=== PATIENT | male | born 1960 | race Caucasian/White ===

== ENCOUNTER → 2020-12-05 08:05 | Outpatient (BNVA) | payer OTHER, SELFPAY | PROVIDERS: PCP Internal Medicine; Visit Provider Internal Medicine ==

== ENCOUNTER → 2020-12-06 11:07 | Outpatient (REF) | payer OTHER, SELFPAY ==
--- NOTE | 2020-12-06 11:11 | CA_ITS ---
Transthoracic Echocardiogram Patient (Last, First, Middle): Stan Chapman A Gender: Male Date of : 1960 Age: 60 Procedure Date: 12/06/2020 Procedure Type: Transthoracic Echocardiogram Location: OP Height: 180. cm Weight: 63.5 kg BSA: 1.81 m2 Heart Rate: bpm Sales Department Supervisor: VÍCTOR Farley MD: Maximiliano Jiang MD In Store Representative: Nathaniel Liu MD Symptoms: Q21.1 - Atrial septal defect Study Quality: Good ECG Rhythm: Sinus Conclusions: - No evidence of interatrial shunting Findings Atria There is no evidence of interatrial shunt by agitated saline. Prior Study Comparison No prior study available for comparison. Updated in Other Vendor System with Status of Final Nathaniel Liu MD electronically signed on 12/07/2020 5:04:17 PM with status of Final
== END ==
LOC: HO.CARD 11:07
PROVIDERS: Visit Provider Internal Medicine
DX: R55 Syncope and collapse (principal); R00.2 Palpitations; I25.10 Atherosclerotic heart disease of native coronary artery without angina pectoris; Q21.1 Atrial septal defect
CPT/HCPCS: 93005; 93308; 99202

== ENCOUNTER → 2020-12-26 13:53 | Outpatient (REF) | payer OTHER, SELFPAY ==
--- NOTE | 2020-12-26 13:58 | HM_ITS ---
TEST PERFORMED: Cardiac event monitoring. ENROLLMENT PERIOD: 12/26/2020 to 01/25/2021-30 days. FINDINGS: In the above monitoring period, the underlying rhythm was sinus. The ventricular rate ranged from 72 beats per minute to 98 beats per minute. There were no arrhythmias noted during this time. CONCLUSION: Study shows sinus rhythm only without any arrhythmias of concern. MD BRITTANY Alcala/KATE / [id number]
== END ==
LOC: HO.CARD 13:53
PROVIDERS: Visit Provider Internal Medicine
DX: R00.2 Palpitations (principal); R55 Syncope and collapse
CPT/HCPCS: 93270

== ENCOUNTER → 2021-02-01 14:29 | Outpatient (BNVA) | payer OTHER, SELFPAY | PROVIDERS: PCP Physician Assistant; Referring Provider Physician Assistant; Visit Provider Internal Medicine | DX: Z01.810 Encounter for preprocedural cardiovascular examination (principal); R55 Syncope and collapse; R00.2 Palpitations; I25.10 Atherosclerotic heart disease of native coronary artery without angina pectoris | CPT/HCPCS: 99212 ==

== ENCOUNTER 2021-02-21 08:47 | Outpatient (REF) | payer OTHER, SELFPAY ==
[2021-02-21 09:10] LABS: MANUAL DIFF FLAG NO
[2021-02-21 09:14] LABS: Basophils Percent Auto 0.5 % (0-2); Eosinophils Absolute Auto 0.2 X10*3/uL (0.0-0.4); Hematocrit 46.9 % (42-52); Hemoglobin 15.3 g/dl (14.0-18.0); Imm Gran Abs Auto 0.02 X10*3/uL (0.00-0.03); Imm Gran Pct Auto 0.3 % (0.0-0.4); Lymphocytes Absolute Auto 1.9 X10*3/uL (1.2-4.9); Lymphocytes Percent Auto 31.5 % (20-40); Mean Corpuscular HGB Conc 32.6 g/dl (31.0-36.0); Mean Corpuscular Hemoglobin 29.7 pg (27.0-33.0); Mean Corpuscular Volume 91.1 fL (80-98); Monocytes Absolute Auto 0.5 X10*3/uL (0.1-1.2); Monocytes Percent Auto 8.4 % (2-11); Neutrophils Absolute Auto 3.3 X10*3/uL (2.0-8.3); Neutrophils Percent Auto 55.3 % (45-73); Platelet Count 197 X10*3/uL (160-400); Red Blood Count 5.15 X10*6/uL (4.60-5.80); Red Cell Distribution Width 13.9 % (11.0-16.0); White Blood Count 5.9 X10*3/uL (4.8-10.8)
[2021-02-21 09:53] LABS: Alanine Aminotransferase 41 U/L (0-40); Albumin Level 4.7 g/dL (3.5-5.0); Alkaline Phosphatase 78 U/L (39-117); Anion Gap 10 (12-20); Aspartate Amino Transferase 29 U/L (5-37); Blood Urea Nitrogen 21 mg/dL (9-16); Calcium 9.7 mg/dL (8.4-10.2); Carbon Dioxide 32 mmol/L (22-29); Chloride 103 mmol/L (96-108); Cholesterol 183 mg/dL; Estimated Glomerular Filt Rate > 60; Glucose Fasting 91 mg/dL (60-99); HDL Cholesterol 77 mg/dL; LDL Cholesterol Calculated 92 mg/dl; Potassium 4.9 mmol/L (3.3-5.1); Sodium 140 mmol/L (135-145); Total Protein 7.2 g/dL (6.5-8.0); Triglycerides 71 mg/dL
== END 2021-02-21 08:48 | disposition home or self-care (01) ==
LOC: HO.LAB 08:47
PROVIDERS: PCP Physician Assistant; Visit Provider Internal Medicine
DX: Z00.00 Encounter for general adult medical examination without abnormal findings (principal); E11.9 Type 2 diabetes mellitus without complications
CPT/HCPCS: 36415; 80053; 80061; 85025

== ENCOUNTER → 2022-03-18 14:57 | Outpatient (BNVA) | payer OTHER, SELFPAY | PROVIDERS: PCP Physician Assistant; Referring Provider Physician Assistant; Visit Provider Internal Medicine | DX: I25.10 Atherosclerotic heart disease of native coronary artery without angina pectoris (principal); R55 Syncope and collapse; R00.2 Palpitations | CPT/HCPCS: 93005; 99212 ==

== ENCOUNTER 2022-11-02 07:59 | Outpatient (REF) | payer OTHER, SELFPAY ==
[2022-11-02 11:55] LABS: Hematocrit 48.5 % (42.0-52.0); Hemoglobin 15.8 g/dl (14.0-18.0); Mean Corpuscular HGB Conc 32.6 g/dl (31.0-36.0); Mean Corpuscular Hemoglobin 29.2 pg (27.0-33.0); Mean Corpuscular Volume 89.6 fL (80.0-98.0); Mean Platelet Volume 12.2 fL (9.4-12.4); Platelet Count 204 X10*3/uL (160-400); Red Blood Count 5.41 X10*6/uL (4.60-5.80); Red Cell Distribution Width 13.9 % (11.0-16.0); White Blood Count 5.5 X10*3/uL (4.8-10.8)
[2022-11-02 12:34] LABS: Alanine Aminotransferase 27 U/L (0-40); Albumin Level 4.4 g/dL (3.5-5.0); Alkaline Phosphatase 82 U/L (39-117); Anion Gap 13 (12-20); Aspartate Amino Transferase 22 U/L (5-37); Bilirubin Direct 0.3 mg/dL (0.0-0.5); Bilirubin Total 1.1 mg/dL (0.0-1.0); Blood Urea Nitrogen 22 mg/dL (9-16); Calcium 9.3 mg/dL (8.4-10.2); Carbon Dioxide 27 mmol/L (22-29); Chloride 105 mmol/L (96-108); Cholesterol 253 mg/dL; Estimated Glomerular Filt Rate > 60; Glucose Random 88 mg/dL (60-115); HDL Cholesterol 69 mg/dL; LDL Cholesterol Calculated 169 mg/dl; Potassium 4.3 mmol/L (3.3-5.1); Sodium 141 mmol/L (135-145); Total Protein 6.9 g/dL (6.5-8.0); Triglycerides 77 mg/dL
[2022-11-02 12:48] LABS: Thyroid Stimulating Hormone 1.27 uIU/mL (0.32-4.0)
== END 2022-11-02 08:00 | disposition home or self-care (01) ==
LOC: HO.HMGCLDS 07:59
PROVIDERS: PCP Physician Assistant; Visit Provider Internal Medicine
DX: R55 Syncope and collapse (principal)
CPT/HCPCS: 36415; 80048; 80061; 80076; 84443; 85027

== ENCOUNTER 2022-12-04 12:39 | Outpatient (REF) | payer OTHER, SELFPAY ==
--- NOTE | 2022-12-04 | EEG_ITS ---
This is a 16 channel EEG with an EKG lead. The patient is reported awake during the tracing. Background EEG rhythm is 10 hertz 5 to 20 microvolt posteriorly and low amplitude fast anteriorly. Photic stimulation does not produce any significant driving. Hyperventilation is unremarkable. Cardiac lead does not reveal any significant abnormality. No sharp wave spikes or paroxysmal tendency noted. IMPRESSION: Unremarkable EEG. MD LAURA Moreno/KATE / [id number]
== END 2022-12-04 12:40 | disposition home or self-care (01) ==
LOC: HO.NEURO 12:39
PROVIDERS: PCP Physician Assistant; Visit Provider Physician Assistant
DX: R55 Syncope and collapse (principal)
CPT/HCPCS: 95816

== ENCOUNTER 2022-12-17 08:43 | Outpatient (REF) | payer OTHER, SELFPAY ==
--- NOTE | ~2022-12-17 | MR_ITS ---
EXAMINATION: MR BRAIN WITHOUT CONTRAST CLINICAL INFORMATION: Unexplained acute syncope COMPARISON: None TECHNIQUE: Multiplanar multisequence MR imaging of the brain was obtained without intravenous contrast. FINDINGS: There is no acute infarct on diffusion-weighted imaging. There is no intracranial hemorrhage on iron-sensitive imaging. No extra-axial collection or mass effect/herniation. There are several scattered foci of nonspecific supratentorial white matter T2/FLAIR signal abnormality. No hydrocephalus. The ventricles are normal in morphology and size. The major flow voids at the skull base are preserved. The midline structures are normal. The cerebellar tonsils are normally positioned. The craniocervical junction is normal. Marrow signal is within normal limits. The visualized soft tissues are without significant abnormality. Mild ethmoid and maxillary sinus mucosal thickening. MR/MR head/brain wo con IMPRESSION: Unremarkable noncontrast MRI of the brain.
== END 2022-12-17 08:44 | disposition home or self-care (01) ==
LOC: HO.MRI 08:43
PROVIDERS: PCP Physician Assistant; Visit Provider Physician Assistant
DX: R55 Syncope and collapse (principal)
CPT/HCPCS: 70551

== ENCOUNTER 2023-02-13 14:06 | Outpatient (AMB) | payer OTHER, SELFPAY ==
[2023-02-13 14:13] VITALS: BP 102/62; PULSE 71; O2SAT 94; BMI 22.8
--- NOTE | 2023-02-13 14:13 | A.OFFPC_ITS ---
Vital Signs 02/13/23 14:13 Height 5 ft 8 in Weight 150 lb BMI 22.8 BP 102/62 Blood Pressure Location Lt brachial Position Sitting Pulse 71 Pulse Source Pulse Oximeter Pulse Oximetry (%) 94 Oxygen Delivery Method Room Air Intake Visit Reasons: PE -HLD/ Syncope Allergies No Known Allergies [No Known Allergies*] Allergy (Verified 02/13/23 14:27) Medication List - Last Reconciled 02/13/23 by Ace Barriga PA-C atorvastatin 20 mg PO DAILY 90 days Tobacco use date assessed: 11/13/22 Dental Screening Dental Screen Date: 02/13/23 Did you have a dental visit in the last 12 months?: No Did you have a dental problem in the last 6 months where you did not have access to dental care?: No Was dental information given to patient?: Patient has dentist HPI PE -HLD/ Syncope HPI Details Patient is 62-year-old male here today for routine annual physical. Patient has a past medical history significant for hyperlipidemia,, head and neck tremor, history syncopal episodes. Syncopal episodes: Unclear etiology at this time liquid related to dehydration. EEG was taken due to fears of seizure disorder though EEG completely normal. Also remains with a head and neck tremor and does not bother him. He does report having somewhat of a tremor is upper extremities that causes his sometimes difficulties with writing. He will discuss the symptoms with neurologist at upcoming appointment March 04 . Hyperlipidemia: Most recent lipid panel showing elevated total cholesterol and has restarted on statin therapy. Vaccines: Up-to-date with COVID vaccine and tetanus vaccine. Considering shingles vaccine Colon cancer screening: Willing to get colonoscopy FOR[facility], [facility] Medical History Atherosclerotic cardiovascular disease Surgical History History of rotator cuff surgery Family History (Updated 02/13/23 @ 14:37 by Ace Barriga PA-C) Mother Heart disease Father Heart disease CAD (coronary artery disease) Parkinson disease Social History Housing: House Alcohol intake: current Alcohol intake frequency: 0-2 drinks per day Alcohol type: beer Patient Tobacco Use Status: Never used Tobacco e-Cigarette/Vaping Use: Never Used Second Hand Smoke Exposure: No service: No Current occupational status: employed Cognitive needs: No Hearing needs: No Vision needs: Yes (glasses) Questionnaire PHQ-9 Over the last 2 weeks, how often have you been bothered by any of the following problems? 1. Little interest or pleasure in doing things: not at all 2. Feeling down, depressed, or hopeless: not at all 3. Trouble falling or staying asleep, or sleeping too much: not at all 4. Feeling tired or having little energy: not at all 5. Poor appetite or overeating: not at all 6. Feeling bad about yourself - or that you are a failure or have let yourself or your family down: not at all 7. Trouble concentrating on things, such as reading the newspaper or watching television: not at all 8. Moving or speaking so slowly that other people could have noticed. Or the opposite - being so fidgety or restless that you have been moving around a lot more than usual: not at all 9. Thoughts that you would be better off or of hurting yourself in some way: not at all Total score: 0 Depression Screening Interpretation: Negative Source: Developed by Drs. Álvaro Gonzalez, Jeanine Schmidt, Yohan Jolly and colleagues, with an educational matthieu from [employer]. Thrive Questionnaire Date Thrive assessed: 11/13/22 AUDIT C Alcohol Use Questionnaire (AUDIT-C) 1. How often do you have a drink containing alcohol?: 2-3 times a week 2. How many drinks containing alcohol do you have on a typical day when you are drinking?: 1 or 2 Total Score: 3 KISHA-7 AMB Questionnaire KISHA-7 Date KISHA - 7 assessed: 11/13/22 Source: Developed by Drs. Álvaro Gonzalez, Yohan Babin and colleagues, with an educational matthieu from [employer]. Review of Systems Const Denies body aches, Denies chills, Denies excessive sweating, Denies fatigue, Denies fever(s) and Denies headache(s) Eyes Denies blurry vision ENT Denies dysphagia, Denies vertigo, Denies dizziness, Denies headache(s), Denies hearing loss and Denies tinnitus Card Denies chest pain, Denies chest pain with activity, Denies syncope, Denies irregular heart rhythm and Denies dyspnea Resp Denies chest congestion, Denies cough, Denies hemoptysis, Denies dyspnea and Denies wheezing GI Denies abdominal pain, Denies melena, Denies hematochezia, Denies coffee ground emesis, Denies dysphagia, Denies diarrhea, Denies nausea and Denies vomiting Denies difficulty urinating, Denies dysuria, Denies urinary frequency, Denies urinary hesitancy and Denies urinary urgency Musc Denies arthralgias, Denies limited range of motion, Denies muscle cramps and Denies muscle weakness Skin/Breast Denies rash and Denies skin ulcer Neuro Denies Abnormal speech present, Denies confusion, Denies vertigo, Denies dizziness, Denies syncope, Denies headache(s), Denies memory loss and Denies seizure-like activity Psych Denies anxiety, Denies confusion, Denies depression, Denies memory loss, Denies panic attacks and Denies paranoia Endo Denies excessive sweating, Denies fatigue, Denies flushing, Denies polydipsia and Denies polyuria Aller/Immun Denies wheezing Physical exam (Primary Care) Vital Signs: Last Vital Signs Pulse 71 02/13/23 14:13 BP 102/62 02/13/23 14:13 Pulse Ox 94 02/13/23 14:13 Oxygen Delivery Method Room Air 02/13/23 14:13 BMI result Body Mass Index 22.8 Tobacco/Smoking Status: Tobacco use Status Tobacco use date assessed 11/13/22 02/13/23 14:19 Patient Tobacco Use Status Never used Tobacco 02/13/23 14:19 e-Cigarette/Vaping Use Never Used 02/13/23 14:19 PHQ-9: PHQ-9 Score PHQ-9: Total score 0 02/13/23 14:19 Depression Screening Interpretation: Negative Thrive Assessment: Date of Thrive Assessment Date Thrive assessed 11/13/22 02/13/23 14:19 Const General: cooperative, comfortable, no acute distress, alert and awake; No conf usion Orientation/consciousness: oriented to person, oriented to place, patient oriented x3 and No confusion HENMT Head: Yes normocephalic Ears: external ears normal and TM's normal bilaterally Face and sinus: No sinus tenderness Mouth: Normal oral and palatal mucosa present and tongue normal Teeth and gingiva: dentition normal and gingiva normal Throat: Yes posterior oropharynx normal, Yes tonsils normal and Yes uvula midline Eyes Conjunctivae: conjunctivae normal Sclerae: sclerae normal Pupils: Equal, round and reactive pupils present EOM: EOMs intact bilaterally Direct Ophthalmoscopy: No no photophobia Neck Neck: Yes no lymphadenopathy, No tender and Yes no JVD Thyroid: Thyroid normal Carotids: no bruits Chest Chest palpation & inspection: no tenderness Resp Effort & Inspection: normal respiratory effort, no audible wheezes, not labored and no stridor Auscultation: no crackles, no rales, no rhonchi and no wheezes Cardio Jugular venous distension: no JVD Rate: regular rate, not bradycardic and not tachycardic Rhythm: regular rhythm Bruits: no carotid bruits Peripheral pulses: Peripheral pulses 2+ throughout GI Inspection: Yes normal to inspection, No abdominal wall ecchymosis and No visible herniation Palpation (GI): Soft to palpation, nontender, no guarding, not rigid and No hepatosplenomegaly present Auscultation: normoactive bowel sounds General: Yes no CVA tenderness Back/Spine/Pelvis Back: no CVA tenderness and No back tenderness Cervical Spine: cervical ROM normal Thoracic/Lumbar Spine: thoracic and lumbar spine normal to inspection, straight leg raise negative bilaterally, No thoraco-lumbar ROM limited and No lumbar spinal tenderness Skin Lesions: no lesions Rashes: no rashes Wounds: no wounds Neuro Other: NOTED TREMOR IN THE HEAD General: oriented to person, oriented to place, patient oriented x3, CN's II-XI intact bilaterally and No confusion Cranial nerves: Yes Equal, round and reactive pupils present and Yes Normal accommodation reflex present Cognition (Neuro): normal cognition Speech: No Abnormal speech present Gait exam (Neuro): Normal gait present Motor exam (neuro): 5/5 motor strength present throughout Extrem Right upper extremity: full ROM; no cyanosis Left upper extremity: full ROM; no cyanosis Right lower extremity: no edema Left lower extremity: no edema Psych Appearance: grossly normal Mental Status: mental status grossly normal Affect: normal affect Attitude: cooperative Thought process: Normal thought process present Assessment and Plan Assessment & Plan (1) Annual physical exam: Code(s): Z00.00 - Encounter for general adult medical examination without abnormal findings (2) HLD (hyperlipidemia): Code(s): E78.5 - Hyperlipidemia, unspecified Qualifiers: Hyperlipidemia type: mixed hyperlipidemia Qualified Code(s): E78.2 - Mixed hyperlipidemia Plan: Patient continues on moderate dose statin therapy due to family history and hyperlipidemia. Will recheck lipid panel to assure appropriate total cholesterol and LDL. (3) Benign head tremor: Code(s): G25.0 - Essential tremor Plan: Has upcoming appointment with Neurology. He is somewhat concerned about Parkinson's as his dad had Parkinson's. He continues to have venous central tremor in his upper extremities and head and neck. He does report sometimes having difficulty with writing due to his tremor. Not interested in starting medication at this time for tremor per (4) Colon cancer screening: Code(s): Z12.11 - Encounter for screening for malignant neoplasm of colon Orders: Orders Comprehensive [place]. Panel Fast Today E78.2 - Mixed hyperlipidemia Lipid Panel Today E78.2 - Mixed hyperlipidemia Complete Blood Count no Diff Today E78.2 - Mixed hyperlipidemia Referrals Gastroenterology Referral Z12.11 - Encounter for screening for malignant neoplasm of colon Coding Level of Care Code Est Pt Prev Care 40-64y([id number]) Diagnoses Annual physical exam Z00.00 HLD (hyperlipidemia) E78.2 Hyperlipidemia type: mixed hyperlipidemia Benign head tremor G25.0 Colon cancer screening Z12.11
== END 2023-02-13 14:50 | disposition home or self-care (01) ==
PROVIDERS: PCP Physician Assistant; Visit Provider Physician Assistant
DX: Z00.00 Encounter for general adult medical examination without abnormal findings (principal); E78.2 Mixed hyperlipidemia; G25.0 Essential tremor; Z12.11 Encounter for screening for malignant neoplasm of colon
CPT/HCPCS: 99396

== ENCOUNTER 2023-02-21 07:40 | Outpatient (REF) | payer OTHER, SELFPAY ==
[2023-02-21 11:45] LABS: Hematocrit 49.7 % (42.0-52.0); Hemoglobin 15.9 g/dl (14.0-18.0); Mean Corpuscular Hemoglobin 29.3 pg (27.0-33.0); Mean Corpuscular Volume 91.5 fL (80.0-98.0); Platelet Count 197 X10*3/uL (160-400); Red Blood Count 5.43 X10*6/uL (4.60-5.80); White Blood Count 5.6 X10*3/uL (4.8-10.8)
[2023-02-21 15:30] LABS: Alanine Aminotransferase 36 U/L (0-40); Albumin Level 4.5 g/dL (3.5-5.0); Alkaline Phosphatase 84 U/L (39-117); Anion Gap 15 (12-20); Aspartate Amino Transferase 26 U/L (5-37); Bilirubin Total 0.8 mg/dL (0.0-1.0); Blood Urea Nitrogen 24 mg/dL (9-16); Calcium 9.5 mg/dL (8.4-10.2); Carbon Dioxide 25 mmol/L (22-29); Chloride 106 mmol/L (96-108); Cholesterol 182 mg/dL; Estimated Glomerular Filt Rate > 60; Glucose Fasting 87 mg/dL (60-99); HDL Cholesterol 77 mg/dL; LDL Cholesterol Calculated 94 mg/dl; Potassium 5.3 mmol/L (3.3-5.1); Sodium 141 mmol/L (135-145); Total Protein 7.3 g/dL (6.5-8.0); Triglycerides 55 mg/dL
== END 2023-02-21 07:41 | disposition home or self-care (01) ==
LOC: HO.HMGCLDS 07:40
PROVIDERS: PCP Physician Assistant; Visit Provider Physician Assistant
DX: E78.2 Mixed hyperlipidemia (principal)
CPT/HCPCS: 36415; 80053; 80061; 85027

== ENCOUNTER 2023-03-04 07:57 | Outpatient (AMB) | payer OTHER, SELFPAY ==
[2023-03-04 08:00] VITALS: BP 130/84; PULSE 72; O2SAT 97; BMI 23.2
--- NOTE | 2023-03-04 08:00 | MHC.OFFVIS ---
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 Pt states A couple years ago it happened. My heartbeat was 200 bpm. I was told the heart looked good. It happened againg twice in one week in October. I got up, got dizzy and fell to the ground. A couple days later I was driving and it happened. They thought it was brain seizures. both times were in October almost 2 years to the day. I was told I have benign tremors of the head and I also notice that when I'm writing, at times I have tremors on my left hand. Contracting Executive Required: No Allergies No Known Allergies [No Known Allergies*] Allergy (Verified 03/04/23 08:10) Medication List - Last Reconciled 03/04/23 by IRINA Hinton atorvastatin 20 mg PO DAILY 90 days HPI HPI Comments History of Present Illness Details Left-handed 62-yr-old male presents for neurological evaluation of: syncope and ? of Parkinson's. Pt had 4 episodes of syncope. His 1st/2nd episode was 2 yrs ago in October (about 1 week apart). The last 2 episodes were in October 2022 (3 days apart). 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 The 2nd episode- stepped up on a stool and next thing he knew he was on the ground. The 3rd episode, reports that these occurred after standing up quickly and started walking but became dizzy and fell/passed out. The 4th episode, he was driving, came to a stop, and then passed out x's possibly 60 sec. Each of these episodes occurred later in the day after being physically active and busy and having not eaten or drank much besides coffee. He denies having bit his tongue or urinary incontinence with any of these episodes. He denies any postictal confusion, fatigue. Generally felt better after eating and drinking. He notes that he typically drinks about 2-3 cups in the morning. He had cardiac work-up in after the initial syncopal episodes- work-up was unremarkable. He is on a statin for HLD. Recent brain MRI and EEG- were unremarkable. He is also concerned about possible Parkinson's. His father also had Parkinson's (dx'd in his 60s)- did have a h/o excess alcohol use. Denies any other family h/o tremor. He has had a head tremor x's 15 years. States his former PCP dx'd it as benign head tremor. Lately, he is noticing left hand tremor- having difficulty writing. Tremor does not seem to affect him at work. He does not know if alcohol suppresses the tremor. Patient endorses: some newer onset RLE numbness when driving, occasional nocturnal leg cramps. And patient denies: hyposmia, droooling, dysphagia, usual lightheadedness (other than the the syncopal episodes), constipation, parasomnias, memory changes, gait changes, neck pain/tightness. Denies hx of neuroleptic use/psych hospitalization, concussions, neck/back/shoulder injuries. [facility] Medical History Atherosclerotic cardiovascular disease Surgical History History of rotator cuff surgery Family History (Updated 03/04/23 @ 08:24 by Cheri Hawkins CMA) Mother Heart disease Lung cancer Breast cancer Father Heart disease CAD (coronary artery disease) Parkinson disease Hypertension Hypercholesteremia Hemochromatosis Sudden cardiac arrest Myocardial infarction Benign prostatic hyperplasia CKD (chronic kidney disease) Sister Breast cancer Social History (Updated 03/04/23 @ 08:12 by Cheri Hawkins CMA) Housing: House Alcohol intake: current Alcohol intake frequency: a few times a week Alcohol type: beer Patient Tobacco Use Status: Never used Tobacco e-Cigarette/Vaping Use: Never Used Second Hand Smoke Exposure: No service: No Current occupational status: employed Cognitive needs: No Hearing needs: No Vision needs: Yes (glasses) Review of Systems Const Details: See scanned ROS form Physical Exam Vital Signs: Last Vital Signs Pulse 72 03/04/23 08:00 BP 130/84 03/04/23 08:00 Pulse Ox 97 03/04/23 08:00 Oxygen Delivery Method Room Air 08/15/23 08:00 BMI result Body Mass Index 23.2 Const General: cooperative and no acute distress Orientation/consciousness: patient oriented x3 HEENT Head: Yes normocephalic Resp Effort & Inspection: normal respiratory effort and able to speak in complete sentences Back/Spine/Pelvis Other: Bilateral posterior cervical supple Cervical ROM: full Left Spurling: normal Right Spurling: normal. Neuro Other: Mild intermittent head tremor. No cervical tightness noted. mild LUE tremor in wingbeat position. No appreciable tone. FFM and Foot taps- intact. Stands easily- slight decrease in left arm swing, good stride, steady gait. Writing sample- mild tremor w/o micrographia, but legible writing. Archimede's spiral- BUE tremor but legible. General: patient oriented x3, CN's II-XI intact bilaterally (w/ exception of left lower facial asymmetry- droop) and deep tendon reflexes 2+ bilaterally Motor exam (neuro): 5/5 motor strength present throughout Psych Appearance: grossly normal Mental Status: mental status grossly normal Speech and movement: Normal speech and movement present Affect: normal affect Attitude: cooperative Thought process: Normal thought process present Thought content: Normal thought content present Insight: Good insight present (Psych) Assessment & Plan Assessment & Plan (1) Syncope and collapse: Code(s): R55 - Syncope and collapse (2) Tremor: Comment: LUE wingbeat tremor. Head tremor. BUE action tremor- raul on writing/drawing. Gait w/ decreased left arm swing. Code(s): R25.1 - Tremor, unspecified Plan For syncope: Reviewed brain MRI and EEG- unremarkable. Pt advised to ensure that eh is eating and drinking throughout the day- may take snacks and electrolyte drinks. Pt advised to undergo tilt-table test. For tremor and ? of PD: Pt has very mild asymmetric L > R tremor and decreased LUE arm swing w/ walking and episodes of syncope, which could be very early signs of a PD process, however he denies many other early s/s of PD/movement disorders. Recent brain MRI- unremarkable. Tilt-table as above. Future considerations: DaTscan. Pt seen in c/w Dr Gallardo. f/u in 3 months or sooner prn. Orders: Orders ECG Tilt Table Test Today I25.10 - Atherosclerotic heart disease of [place] coronary artery without angina pectoris, R00.2 - Palpitations, R25.1 - Tremor, unspecified, R55 - Syncope and collapse Coding Level of Care Code New Pt Level 4 ([id number]) Diagnoses Syncope and collapse R55 Tremor R25.1
== END 2023-03-04 09:31 | disposition home or self-care (01) ==
PROVIDERS: Visit Provider Nurse Practitioner Family
DX: R55 Syncope and collapse (principal); R25.1 Tremor, unspecified
CPT/HCPCS: 99204

== ENCOUNTER → 2023-03-04 07:57 | Outpatient (BNVA) | payer OTHER, SELFPAY | PROVIDERS: Visit Provider Nurse Practitioner Family | DX: R55 Syncope and collapse (principal); R25.1 Tremor, unspecified; I25.10 Atherosclerotic heart disease of native coronary artery without angina pectoris | CPT/HCPCS: 99202 ==

== ENCOUNTER 2023-05-26 08:44 | Outpatient (AMB) | payer OTHER, SELFPAY ==
--- NOTE | 2023-05-26 08:51 | MHC.OFFVIS ---
Intake Vital Signs 05/26/23 08:54 Height 5 ft 8 in Weight 150 lb BMI 22.8 BP 142/82 H Blood Pressure Location Lt brachial Position Sitting Pulse 68 Intake Visit Reasons: Colonoscopy screening Intake Note: Patient new consult for 2nd pre colonoscopy screening. Patient denies any GI issues. 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 Required: No Accompanied by: Self / Same As Patient Allergies No Known Allergies [No Known Allergies*] Allergy (Verified 05/26/23 08:50) Medication List - Last Reconciled 05/26/23 by Angella Almanzar PA-C atorvastatin 20 mg PO DAILY 90 days HPI HPI Comments History of Present Illness Details 62-year-old male referred for screening colonoscopy He has no GI complaints- He says he had issues back a couple years ago-he is now doing well- being tested for parkinsons-dx - benign tremors- Appetite is good Bowels are normal No N/V/D/ abdominal pain- BURNS, dizziness, CP, SOB-no fever or chills PFSH Medical History Atherosclerotic cardiovascular disease Surgical History History of rotator cuff surgery Family History Mother Heart disease Lung cancer Breast cancer Father Heart disease CAD (coronary artery disease) Parkinson disease Hypertension Hypercholesteremia Hemochromatosis Sudden cardiac arrest Myocardial infarction Benign prostatic hyperplasia CKD (chronic kidney disease) Sister Breast cancer Social History (Updated 05/26/23 @ 09:08 by Angella Almanzar PA-C) Household Members Other:: single- 2 adult kids Housing: House Alcohol intake: current Alcohol intake frequency: a few times a week Alcohol type: beer Patient Tobacco Use Status: Never used Tobacco e-Cigarette/Vaping Use: Never Used Second Hand Smoke Exposure: No service: No Current occupational status: employed Cognitive needs: No Hearing needs: No Vision needs: Yes (glasses) Review of Systems Const All systems reviewed & are unremarkable except as noted in HPI and below Denies chills, Denies fatigue, Denies fever(s), Denies headache(s) and Denies weakness Eyes Denies blurry vision and Denies loss of vision ENT Denies dizziness and Denies headache(s) Card Denies chest pain, Denies syncope and Denies dyspnea Resp Denies dyspnea GI Denies abdominal pain, Denies change in stool character, Denies heartburn, Denies nausea and Denies vomiting Neuro Denies dizziness, Denies syncope, Denies headache(s), Denies loss of vision, Denies seizure-like activity, Reports tremor(s) and Denies weakness Psych Denies anxiety and Denies depression Endo Denies fatigue Physical Exam Vital Signs: Last Vital Signs Pulse 68 05/26/23 08:54 BP 142/82 H 05/26/23 08:54 BMI result Body Mass Index 22.8 Const General: cooperative, healthy appearing, comfortable and no acute distress Orientation/consciousness: patient oriented x3 Limitations: no limitations Eyes Sclerae: sclerae normal Resp Effort & Inspection: normal respiratory effort and able to speak in complete sentences Auscultation: clear to auscultation bilaterally, no rales, no rhonchi and no wheezes Cardio Rate: regular rate Rhythm: regular rhythm Heart sounds: S1 normal heart sound present and S2 normal heart sound present GI Palpation (GI): Soft to palpation and nontender Percussion: Yes normal to percussion Skin General skin exam: no rashes or lesions noted Neuro General: patient oriented x3 Extrem General: Yes full ROM Psych Appearance: grossly normal Mental Status: mental status grossly normal Speech and movement: Normal speech and movement present and Clear speech present Affect: normal affect Attitude: cooperative Thought content: Normal thought content present Insight: Good insight present (Psych) Judgement: Good judgement present (Psych) Assessment & Plan Assessment & Plan (1) Colon cancer screening: Comment: colonoscopy Discussed, procedure, rare risks, need for escort- Code(s): Z12.11 - Encounter for screening for malignant neoplasm of colon Plan Screening colonoscopy MG prep Orders: Orders Colonoscopy - GI Use Only Today Z12.11 - Encounter for screening for malignant neoplasm of colon Medications: New polyethylene glycol 3350 (Miralax) Take as directed by mouth the day before your procedure. 238 grams PO ONCE PRN 238 grams 0RF laxative effect 1 day bisacodyl (Dulcolax (bisacodyl)) Day before procedure, prep day Take 4 tablets by mouth upon awakening followed by large glass of water 20 mg (4 x 5 mg) PO ONCE 4 tabs 0RF colonoscopy prep 1 day Z12.11 - Encounter for screening for malignant neoplasm of colon Patient Instructions: Very pleasant Gent, referred for Screening colonoscopy MG prep Call with questions or concerns Coding Level of Care Code New Pt Level 3 (71293) Diagnoses Colon cancer screening Z12.11 Time Spent (min) 25
[2023-05-26 08:54] VITALS: BP 142/82; PULSE 68; BMI 22.8
== END 2023-05-26 11:17 | disposition home or self-care (01) ==
PROVIDERS: PCP Physician Assistant; Visit Provider Physician Assistant
DX: Z12.11 Encounter for screening for malignant neoplasm of colon (principal); Z01.818 Encounter for other preprocedural examination
CPT/HCPCS: 99203

== ENCOUNTER → 2023-05-26 08:44 | Outpatient (BNVA) | payer OTHER, SELFPAY | PROVIDERS: PCP Physician Assistant; Visit Provider Physician Assistant | DX: Z01.818 Encounter for other preprocedural examination (principal) | CPT/HCPCS: 99202 ==

== ENCOUNTER 2023-09-03 10:52 | Outpatient (AMB) | payer OTHER, SELFPAY ==
--- NOTE | 2023-09-03 11:13 | A.OFFVIS_ITS ---
Intake Vital Signs 09/03/23 11:14 Height 5 ft 8 in Weight 156 lb BMI 23.7 Pulse 72 Pulse Source Pulse Oximeter Pulse Oximetry (%) 98 Oxygen Delivery Method Room Air Intake Visit Reasons: 3m follow up-CONF Intake Note: Patient presents for 3 month follow up. About three weeks ago I was driving and felt dizzy had to stop. my head shakes are getting worst. Allergies No Known Allergies [No Known Allergies*] Allergy (Verified 09/04/23 14:32) HPI HPI Comments History of Present Illness Details 63-yr-old male presents for f/u visit. Pt denies any significant interval medical history changes. Tilt table test was normal, although pt's BP was elevated throughout the exam. He did have an episode of dizziness (feeling like he would pass out) a couple of weeks ago, while he was driving home from work, he was able to test puller, drank some water, and felt better immediately. He notes that he skipped lunch. 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 Now trying to add [employer] electrolyte replacement. Breakfast: usually a coffee around 6, 7:30, and 10am , if he does eat, its around 7:30am- feels like when he eats breakfast (a sausage egg & cheese sandwich), he becomes hungry quicker. 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 Lunch: at 12pm, usually a 16oz bowl of soup or maybe chicken wings- goes to [employer]. May snack on triscuits. Dinner: is usually around 6-7pm- pasta, meats, potatoes, bread. Evening snack- around 8-8:30pm- milk w/ a row of oreo cookies, ice cream. His head tremor is stable. The left hand tremor comes and goes. Pt denies: hyposmia, droooling, dysphagia, usual lightheadedness (other than the the syncopal episodes), constipation, parasomnias, memory changes, gait changes, falls, neck pain/tightness, headaches. [facility] Medical History Atherosclerotic cardiovascular disease Surgical History History of rotator cuff surgery Family History Mother Heart disease Lung cancer Breast cancer Father Heart disease CAD (coronary artery disease) Parkinson disease Hypertension Hypercholesteremia Hemochromatosis Sudden cardiac arrest Myocardial infarction Benign prostatic hyperplasia CKD (chronic kidney disease) Sister Breast cancer Social History Household Members Other:: single- 2 adult kids Housing: House Alcohol intake: current Alcohol intake frequency: a few times a week Alcohol type: beer Patient Tobacco Use Status: Never used Tobacco e-Cigarette/Vaping Use: Never Used Second Hand Smoke Exposure: No Advance Directives: No service: No Current occupational status: employed Cognitive needs: No Hearing needs: No Vision needs: Yes (glasses) Review of Systems Const All systems reviewed & are unremarkable except as noted in HPI and below Physical Exam Vital Signs: Last Vital Signs Pulse 72 09/03/23 11:14 Pulse Ox 98 09/03/23 11:14 Oxygen Delivery Method Room Air 09/03/23 11:14 BMI result Body Mass Index 23.7 Const General: cooperative and no acute distress Resp Effort & Inspection: normal respiratory effort and able to speak in complete sentences Neuro Other: Genral: A&O x's 3 Expression: intact Mild intermittent head tremor. No cervical tightness noted. Mild LUE tremor in wing beat position. No appreciable tone. FFM and Foot taps- intact. Stands easily- slight decrease in left arm swing, good stride, steady gait Psych Appearance: grossly normal Mental Status: mental status grossly normal Speech and movement: Clear speech present Affect: normal affect Attitude: cooperative Results Reviewed Results Reviewed: 03/26/23, [facility], Tilt Table Test: INDICATION: ?Syncope ? OPERATORS: ?Lesli Darnell NP, Omar Menchaca RN & Tati Hamm ? DESCRIPTION OF PROCEDURE: ?The pt presented to the cardiac stress lab in a fasting state. ?Identity of the pt was confirmed. ?The procedure was explained to the pt. ?The pt states he feels well this AM. ? PREPROCEDURAL VITAL SIGNS IN THE SUPINE POSITION: ?B/P: ?147/91 mmHg ? ? HR: ?60 bpm B/P in the sitting position: ?138/76 mmHg ?HR: ?74 bpm ? PROCEDURAL VITAL SIGNS AT 70 DEGREE TILT 2 min: ?B/P: ?137/93 ?mmHg ?HR: ?63 bpm 4 min: ? 137/92 ? 71 6 min: ? 134/87 ? 68 8 min: ? 138/93 ? 68 10 min: ? 128/90 ? 75 12 min: ? 133/93 ? 70 14 min: ? 139/87 ? 73 16 min: ? 126/99 ? 76 ? c/o right hand tingling 18 min: ? 143/95 ? 70 20 min: ? 149/101 ? 69 22 min: ? 124/92 ? 72 24 min: ? 128/94 ? 73 26 min: ? 143/94 ? 70 28 min: ? 126/95 ? 73 30 min: ? 134/94 ? 73 TEST ENDED PT RETURNED TO SUPINE POSITION ? POST PROCEDURAL VITAL SIGNS 0913: Supine: ?B/P: ?158/102 mmHg ?HR: ?61 bpm ?Pt states he feels well. ? Sitting: ?162/101 ? 68 ? IMRESSION: ?NORMAL. ?However, pt was hypertensive throughout the test. ? Assessment & Plan Assessment & Plan (1) Tremor: Comment: LUE wingbeat tremor. Head tremor. BUE action tremor- raul on writing/drawing. Gait w/ decreased left arm swing. Code(s): R25.1 - Tremor, unspecified (2) Syncope and collapse: Code(s): R55 - Syncope and collapse Plan For syncope: Brain MRI and EEG- unremarkable. Tilt-table- no evidence of orthostatic hypotension. Pt advised to increase the quantity, frequency, and quality of his meals and fluid intake. Encouraged to add higher protein snacks and continue electrolyte drinks. For tremor and ? of PD: Pt has very mild asymmetric L > R tremor and decreased LUE arm swing w/ walking and episodes of syncope, which could be very early signs of a PD process, however he denies many other early s/s of PD/movement disorders. Recent brain MRI- unremarkable. Tilt-table- normal. Will monitor clinically for now. Continue regular physical activity. Future considerations: DaTscan. ? f/u in 6 months or sooner prn. Coding Level of Care Code Est Pt Level 4 (49376) Diagnoses Tremor R25.1 Syncope and collapse R55
[2023-09-03 11:14] VITALS: PULSE 72; O2SAT 98; BMI 23.7
== END 2023-09-03 12:04 | disposition home or self-care (01) ==
PROVIDERS: PCP Physician Assistant; Visit Provider Nurse Practitioner Family
DX: R25.1 Tremor, unspecified (principal); R55 Syncope and collapse
CPT/HCPCS: 99214

== ENCOUNTER → 2023-09-03 10:52 | Outpatient (BNVA) | payer OTHER, SELFPAY | PROVIDERS: PCP Physician Assistant; Visit Provider Nurse Practitioner Family | DX: R25.1 Tremor, unspecified (principal); R55 Syncope and collapse | CPT/HCPCS: 99212 ==

== ENCOUNTER 2023-09-04 14:22 | Emergency (ER) | payer OTHER, SELFPAY ==
--- NOTE | ~2023-09-04 | US_ITS ---
EXAMINATION: US VENOUS ULTRASOUND WITH DOPPLER LOWER EXTREMITY, LEFT CLINICAL INFORMATION: Left lower extremity pain and swelling. COMPARISON: None available. TECHNIQUE: Ultrasound of the deep veins is performed from the hip to the calf with compression sonography and color and pulse Doppler assessment. Spectral analysis with color-flow imaging is performed. FINDINGS: There is normal venous compression and respiratory variation and augmented flow. The visualized common femoral vein, superficial femoral vein, profunda femoral vein, popliteal vein, and the trifurcation region shows no evidence of deep venous thrombosis. There is no significant popliteal fossa cyst. If the patient's symptoms persist, followup ultrasound in 5 days 7 days might be of value to exclude proximal propagation from a non-visualized calf vein. US/US venous duplex LE LT IMPRESSION: No DVT demonstrated in the left lower extremity.
--- NOTE | ~2023-09-04 | XR_ITS ---
EXAMINATION: XR KNEE, LEFT CLINICAL INFORMATION: History of fall, swelling COMPARISON: 03/12/2020 TECHNIQUE: Four views of the left knee. FINDINGS: Bones have normal alignment. No fracture, subluxation or overt joint effusion. There appears to be chronic minimal narrowing at the medial aspect of the medial tibiofemoral compartment with negligible marginal osteophyte formation. Soft tissues are swollen in the prepatellar/infrapatellar region. Similar abnormality was seen on 03/12/2020. XR/XR knee LT 3V IMPRESSION: * No acute osseous injury at the left knee. * Soft tissues are swollen in the prepatellar/infrapatellar region.Given history of fall, this could represent posttraumatic edema/contusion and/or prepatellar bursitis.
--- NOTE | 2023-09-04 14:31 | ED.GENADULT ---
HPI - General Adult General Chief complaint: Wound/Laceration Stated complaint: Pain/swelling left leg Time Seen by Provider: 09/04/23 22:53 Source: patient and old records reviewed Mode of arrival: ambulatory Limitations: no limitations History of Present Illness HPI narrative: 63 yo male with PMH of CAD, HLD, prior cellulitis here with c/o 3 days of L leg pain/swelling/erythema after playing with grandkids. It started with scrape on knee cap and has now spread and caused swelling and redness. No fevers, n/v/d. MD complaint: rash Onset (ago): day(s) (3) Location: left and lower extremity Radiation: non-radiation Severity: mild Quality: aching Pain Consistency: constant Relieving factors: rest Exacerbating factors: movement Associated symptoms: rash Treatments prior to arrival: none Related Data Previous Rx's Medication Instructions Recorded atorvastatin 20 mg tablet 20 mg PO DAILY 90 days #90 tabs 05/18/23 bisacodyl 5 mg tablet,delayed 20 mg (4 x 5 mg) PO ONCE 05/26/23 release (Dulcolax (bisacodyl)) colonoscopy prep 1 day #4 tabs polyethylene glycol 3350 17 238 g PO ONCE PRN laxative effect 05/26/23 gram/dose oral powder (Miralax) 1 day #238 grams cephalexin 500 mg capsule 500 mg PO QID 7 days #28 caps 09/05/23 doxycycline hyclate 100 mg capsule 100 mg PO BID 7 days #14 caps 09/05/23 Allergies Allergy/AdvReac Type Severity Reaction Status Date / Time No Known Allergies Allergy Verified 09/04/23 14:32 [No Known Allergies*] Review of Systems Review of Systems: Constitutional : No Fever, No Chills ENT/Mouth : No sore throat, No Rhinorrhea Eyes: No Eye Pain, No Swelling, No Redness Cardiovascular : No Chest Pain, No SOB Respiratory : No Cough, No Sputum Gastrointestinal : No Nausea, No Vomiting, No Diarrhea, No abdominal Pain Genitourinary : No Dysuria, No Hematuria Musculoskeletal : No joint pain, No Myalgias, No Joint Swelling Skin : No Skin Lesions, positive skin rash Neuro : No Weakness, No Numbness, No Headache Psych : No Anxiety, No Depression Heme/Lymph: No Bruising, No Bleeding,No Lymphadenopathy Endocrine : No Polyuria, No Polydipsia All other systems reviewed and are negative [facility] Past Medical History Attestation statement: The following information was validated with the patient. Source: old records reviewed Medical History Atherosclerotic cardiovascular disease Surgical History History of rotator cuff surgery Family History Family History Mother Heart disease Lung cancer Breast cancer Father Heart disease CAD (coronary artery disease) Parkinson disease Hypertension Hypercholesteremia Hemochromatosis Sudden cardiac arrest Myocardial infarction Benign prostatic hyperplasia CKD (chronic kidney disease) Sister Breast cancer Social History Social History Household Members Other:: single- 2 adult kids Housing: House Alcohol intake: current Alcohol intake frequency: a few times a week Alcohol type: beer Patient Tobacco Use Status: Never used Tobacco e-Cigarette/Vaping Use: Never Used Second Hand Smoke Exposure: No Advance Directives: No service: No Current occupational status: employed Cognitive needs: No Hearing needs: No Vision needs: Yes (glasses) Physical Exam ED Vital Signs: Vital Signs - 24 hr 09/04/23 14:32 09/04/23 23:47 Temperature 98 F 98.1 F Pulse Rate 90 74 Respiratory Rate 18 16 Blood Pressure 132/92 H 170/86 H Pulse Oximetry 98 97 Oxygen Delivery Method Room Air Room Air BMI result Body Mass Index 22.1 Appearance: Alert. Oriented X3. No acute distress. Eyes: Pupils equal, round and reactive to light. ENT: Pharynx normal. Neck: Normal inspection. Neck supple. CVS: Normal heart rate and rhythm. Pulses normal. Respiratory: No respiratory distress. Breath sounds normal. Abdomen: Soft and nontender. Skin: Skin warm and dry. Normal skin color. Normal skin turgor. Extremities: L knee scab noted on patella there is a pink lacy rash noted across dorsum of the patella and anterior magana - prepatella bursa is boggy and mildly swollen, knee can be ranged doubt septic joint no erythema on the thigh distal NV inact Neuro: Oriented X 3. No motor deficit. No sensory deficit. Course Course Course Narrative: This is a rapid medical exam: Additional HPI, ROS, PE not included below will be deferred to primary provider. Patient is a 63-year-old male presenting to the ED with complaint of left knee pain since a trip and fall over the weekend. States he fell onto a rock, noticed a small tear in his jeans. Has a small laceration, reports increased pain and swelling. Small puncture wound noted to anterior knee, erythema to knee, lower leg, swelling. Plan: T-dap, x-ray, labs Medications Administered Discontinued Medications Generic Name Dose Route Start Last Admin Trade Name Freq PRN Reason Stop Dose Admin Piperacillin Sod/Tazobactam 50 mls @ 100 mls/hr 09/04/23 22:57 09/05/23 00:08 Sod 3.375 gm/ Sodium Chloride IV 09/04/23 23:26 100 mls/hr ONCE ONE Administration Medical Decision Making Medical Decision Making [facility] Narrative: 63 yo male with PMH of CAD, HLD, prior cellulitis here with c/o L leg cellulitis and likely prepatella bursitis the calf is also swollen - he is distal NV intact and compartments are soft and compressible will obtain labs, cultures, DVT study start on zosyn and reassess he is not toxic may be able to start on outpatient oral antibiotics pending US. Differential Diagnosis Differential Diagnoses: The differential diagnosis associated with the presentation includes cellulitis, DVT, bursitis Admission/Observation Consideration of admission/observation: Escalation of care including admission/observation considered not toxic improved redness and swelling can be managed as outpatient initially Lab Data [facility] Lab Attestation statement: I reviewed the patient's lab results. 09/04/23 14:41 09/04/23 14:41 Labs: Lab Results 09/04/23 09/04/23 Range/Units 14:41 23:29 WBC 10.8 (4.8-10.8) X10*3/uL RBC 4.91 (4.60-5.80) X10*6/uL Hgb 14.4 (14.0-18.0) g/dl Hct 43.3 (42.0-52.0) % MCV 88.2 (80.0-98.0) fL MCH 29.3 (27.0-33.0) pg MCHC 33.3 (31.0-36.0) g/dl RDW 14.0 (11.0-16.0) % Plt Count 210 (160-400) X10*3/uL MPV 10.9 (9.4-12.4) fL Immature Gran % (Auto) 0.3 (0.0-0.4) % Neut % (Auto) 66.4 (45-73) % Lymph % (Auto) 23.8 (20-40) % Bonner % (Auto) 8.5 (2-11) % Eos % (Auto) 0.6 (0-4) % Baso % (Auto) 0.4 (0-2) % Lymph # (Auto) 2.6 (1.2-4.9) X10*3/uL Bonner # (Auto) 0.9 (0.1-1.2) X10*3/uL Eos # (Auto) 0.1 (0.0-0.4) X10*3/uL Baso # (Auto) 0.0 (0.0-0.2) X10*3/uL Abs Immat Gran (auto) 0.03 (0.00-0.03) X10*3/uL Absolute Neuts (auto) 7.2 (2.0-8.3) x10*3/uL Absolute Nucleated RBC 0.000 (0.0-0.012) X10*3/uL Nucleated RBC % (auto) 0.0 (0.0-0.2) /100WBC ESR 16 H (0-15) MM/HR Sodium 142 (135-145) mmol/L Potassium 4.0 (3.3-5.1) mmol/L Chloride 105 (96-108) mmol/L Carbon Dioxide 29 (22-29) mmol/L Anion Gap 12 (12-20) BUN 19 H (9-16) mg/dL Creatinine 0.99 (0.5-1.4) mg/dL Estim Creat Clear Calc 74.4 Estimated GFR > 60 Random Glucose 90 (60-115) mg/dL Lactic Acid 0.8 (0.5-2.0) mmol/L Calcium 9.3 (8.4-10.2) mg/dL Total Bilirubin 0.6 (0.0-1.0) mg/dL AST 20 (5-37) U/L ALT 30 (0-40) U/L Alkaline Phosphatase 77 (39-117) U/L C-Reactive Protein 4.49 H (< or = 0.50) mg/dL Total Protein 6.9 (6.5-8.0) g/dL Albumin 3.9 (3.5-5.0) g/dL Independent Interpretation I performed an independent interpretation of an: Plain X-Ray (no fracture) and Ultrasound (no DVT) Radiology Impression Discussion of test interpretation with radiology: I have reviewed the radiologist's reading. External Record Review External record reviewed: Outpatient record Prescription Management I considered prescription management with: Antibiotic Discharge Plan Discharge Clinical Impression: Cellulitis Qualifiers: Site of cellulitis: extremity Site of cellulitis of extremity: lower extremity Laterality: left Qualified Code(s): L03.116 - Cellulitis of left lower limb Bursitis Qualifiers: Bursitis location: knee Knee bursitis location: prepatellar bursitis Laterality: left Qualified Code(s): M70.42 - Prepatellar bursitis, left knee Patient Disposition: Home, Self-Care Instructions: Cellulitis (ED), Knee Bursitis (ED) Additional Instructions: return for worsening redness, swelling, fevers or any other concerns. monitor for worsening signs very closely On a cephalosporin?antibiotic, softer bowel movements are to be expected. Call your provider if you move your bowels more than 4 times a day, your bowel movements are almost all liquid, or you get a rash.?? On doxycycline, do not take pills immediately before going to bed and swallow pills with plenty of water. Avoid direct sunlight, iron, antacids, and Pepto Bismol. Call your provider if you develop new ringing in your ears, new problems hearing, dizziness, difficulty swallowing, rash, abdominal discomfort, nausea, or diarrhea.? Prescriptions: New doxycycline hyclate 100 mg capsule 100 mg PO BID 7 Days Qty: 14 0RF cephalexin 500 mg capsule 500 mg PO QID 7 Days Qty: 28 0RF No Action atorvastatin 20 mg tablet 20 mg PO DAILY 90 Days Qty: 90 1RF bisacodyl [Dulcolax (bisacodyl)] 5 mg tablet,delayed release (DR/EC) 20 mg PO ONCE 1 Days Qty: 4 0RF Rx Instructions: Day before procedure, prep day Take 4 tablets by mouth upon awakening followed by large glass of water polyethylene glycol 3350 [Miralax] 17 gram/dose powder 238 g PO ONCE PRN (Reason: laxative effect) 1 Days Qty: 238 0RF Rx Instructions: Take as directed by mouth the day before your procedure.
[2023-09-04 14:32] VITALS: BP 132/92; PULSE 90; RESP 18; TEMP 36.6; O2SAT 98; BMI 22.1
[2023-09-04 14:49] LABS: MANUAL DIFF FLAG NO
[2023-09-04 14:51] LABS: Basophils Percent Auto 0.4 % (0-2); Eosinophils Absolute Auto 0.1 X10*3/uL (0.0-0.4); Eosinophils Percent Auto 0.6 % (0-4); Hematocrit 43.3 % (42.0-52.0); Hemoglobin 14.4 g/dl (14.0-18.0); Imm Gran Abs Auto 0.03 X10*3/uL (0.00-0.03); Imm Gran Pct Auto 0.3 % (0.0-0.4); Lymphocytes Absolute Auto 2.6 X10*3/uL (1.2-4.9); Lymphocytes Percent Auto 23.8 % (20-40); Mean Corpuscular HGB Conc 33.3 g/dl (31.0-36.0); Mean Corpuscular Hemoglobin 29.3 pg (27.0-33.0); Mean Corpuscular Volume 88.2 fL (80.0-98.0); Mean Platelet Volume 10.9 fL (9.4-12.4); Monocytes Absolute Auto 0.9 X10*3/uL (0.1-1.2); Monocytes Percent Auto 8.5 % (2-11); Neutrophils Absolute Auto 7.2 x10*3/uL (2.0-8.3); Neutrophils Percent Auto 66.4 % (45-73); Platelet Count 210 X10*3/uL (160-400); Red Blood Count 4.91 X10*6/uL (4.60-5.80); White Blood Count 10.8 X10*3/uL (4.8-10.8)
[2023-09-04 15:09] LABS: Alanine Aminotransferase 30 U/L (0-40); Albumin Level 3.9 g/dL (3.5-5.0); Alkaline Phosphatase 77 U/L (39-117); Anion Gap 12 (12-20); Aspartate Amino Transferase 20 U/L (5-37); Bilirubin Total 0.6 mg/dL (0.0-1.0); Blood Urea Nitrogen 19 mg/dL (9-16); C Reactive Protein 4.49 mg/dL (< or = 0.50); Calcium 9.3 mg/dL (8.4-10.2); Carbon Dioxide 29 mmol/L (22-29); Chloride 105 mmol/L (96-108); Creatinine Clr Calc Pharmacy 74.4; Estimated Glomerular Filt Rate > 60; Glucose Random 90 mg/dL (60-115); Sodium 142 mmol/L (135-145); Total Protein 6.9 g/dL (6.5-8.0)
[2023-09-04 15:28] LABS: Erythrocyte Sedimentation Rate 16 MM/HR (0-15)
[2023-09-04 23:44] LABS: Lactic Acid 0.8 mmol/L (0.5-2.0)
[2023-09-04 23:47] VITALS: BP 170/86; PULSE 74; RESP 16; TEMP 36.7; O2SAT 97
--- NOTE | 2023-09-04 23:55 | MHC.EDTECH ---
THIS PCT ASSUMED CARE OF PATIENT AT 2300 ,VITALS TAKEN AND 2ND SETS OF BLOOD CULTURE DRAWN AND SENT TO LAB .
[2023-09-05] MEDS: Piperacillin Sodium/Tazobactam 3.375 GM in 0.9 % Sodium Chloride 50 ML IV (00:08)
--- NOTE | 2023-09-05 00:12 | PC.NURSE ---
Abx started late due to waiting on 2nd set of cultures. Pt medicated per sep. Plan of care ongoing.
[2023-09-05 00:52] VITALS: BP 127/72; PULSE 66; RESP 16; TEMP 36.2; O2SAT 97
[2023-09-05] MEDS: Doxycycline Monohydrate 100 MG CAPSULE PO (01:19)
--- NOTE | 2023-09-05 01:20 | PC.NURSE ---
Pt medicated per sep. Plan of care ongoing.
== END 2023-09-05 01:30 | disposition home or self-care (01) ==
PROVIDERS: Registered Nurse Emergency; Emergency Provider Emergency Medicine; PCP Physician Assistant
DX: L03.116 Cellulitis of left lower limb (principal); M79.605 Pain in left leg; M70.42 Prepatellar bursitis, left knee
CPT/HCPCS: 36415; 73562; 80053; 83605; 85025; 85652; 86140; 87040; 93971; 96365; 99284; J2543

== ENCOUNTER 2023-11-04 08:54 | Day surgery (SDC) | payer OTHER, SELFPAY ==
[2023-10-30 12:23] VITALS: BMI 23.7
[2023-11-04 09:28] VITALS: BP 152/85; PULSE 69; RESP 16; TEMP 37; O2SAT 98; BMI 22.6
--- NOTE | 2023-11-04 09:54 | P.CONAN_ITS ---
[facility] Active Problems Active Problems: All Active Problems Tremor (Acute) Colon cancer screening (Acute) Annual physical exam (Acute) HLD (hyperlipidemia) (Acute) Family history of Parkinson disease (Acute) Benign head tremor (Acute) Right shoulder strain (Acute) Preoperative cardiovascular examination (Acute) Palpitations (Acute) Syncope and collapse (Acute) Intermittent palpitations (Acute) Cervical radiculopathy (Acute) Atherosclerotic cardiovascular disease (Acute) Past Medical History Medical History (Updated 09/06/23 @ 00:01 by Christopher Ricardo) Atherosclerotic cardiovascular disease Family History Family History Mother Heart disease Lung cancer Breast cancer Father Heart disease CAD (coronary artery disease) Parkinson disease Hypertension Hypercholesteremia Hemochromatosis Sudden cardiac arrest Myocardial infarction Benign prostatic hyperplasia CKD (chronic kidney disease) Sister Breast cancer Family history of problems with anesthesia: No Surgical History Surgical History (Updated 11/04/23 @ 09:26 by Heidi Peralta) H/O colonoscopy History of rotator cuff surgery History of Problems with Anesthesia: No Social History Social History Household Members Other:: single- 2 adult kids Housing: House Alcohol intake: current Alcohol intake frequency: a few times a month Alcohol type: beer Patient Tobacco Use Status: Never used Tobacco e-Cigarette/Vaping Use: Never Used Second Hand Smoke Exposure: No Use of substances other than those prescribed or required for medical reasons: No Are you DNR?: No Advance Directives: No Advance Directives Information Provided: Yes service: No Current occupational status: employed Cognitive needs: No Hearing needs: No Vision needs: Yes (glasses) Meds Allergies Allergy/AdvReac Type Severity Reaction Status Date / Time No Known Allergies Allergy Verified 11/04/23 09:16 [No Known Allergies*] Exam Height,Weight and Vital Signs: Height 5 ft 8 in Weight 67.54 kg Last Vital Signs Temp 98.6 F 11/04/23 09:28 Pulse 69 11/04/23 09:28 Resp 16 11/04/23 09:28 BP 152/85 H 11/04/23 09:28 Pulse Ox 98 11/04/23 09:28 O2 Del Method Room Air 11/04/23 09:28 Airway Mallampati Class: II TM Dist: >3cm Neck ROM: Full Loose/Missing/Broken Teeth: Upper Assessment and Plan Assessment Anesthesia Assessment: Anesthesia Plan Discussed and Chart Reviewed Final Anesthetic Review Family History of Problems with Anesthesia: No History of Problems with Anesthesia: No NPO: Yes ASA Class: II Final Preanesthetic Review: No Changes in Pt Med Stat, Meds/Allgs Chart Reviewed, Consent Obtained/Reviewed and Anes Risks/Benef Reviewed Patient Risk: Intermediate Procedure Risk: Low Anesthetic Plan Anesthetic Plan: TIVA Disposition: Standard PACU
[2023-11-04] MEDS: Lactated Ringers 1,000 ML 80 ML IVCONT (10:00)
--- NOTE | 2023-11-04 10:12 | P.HPSUR_ITS ---
Pre-Procedural Eval Section A - 24 Hr Update-Section A only Date of Service: 11/04/23 Section B - Complete if H&P > 30 days Chief Complaint: Encounter for screening for malignant neoplasm of Relevant Family History (Specify if Yes): No Relevant Social History: None Present Medications: see Short Stay Collaborative assessment Medical History: Significant History (Atherosclerotic cardiovascular disease) History of Previous Operations: Relevant previous surgery/procedure and date(s) ( H/O colonoscopy History of rotator cuff surgery) Allergies: Allergies Allergy/AdvReac Type Severity Reaction Status Date / Time No Known Allergies Allergy Verified 11/04/23 09:16 [No Known Allergies*] Review of Systems Sugical H&P ROS: Negative: Constitution, Cardiovascular, Respiratory, Neurological, Psychiatric, Hem-Onc, Allergic/Immunologic, Gastrointestinal, G enitourinary, Musculoskeletal, Integumentary, Endocrine and Eyes/Ears/Nose/Throat Exam Surgical H&P Exam: Normal: HEENT, Normal: Heart, Normal: Lungs, Normal: Extremities, Normal: Abdomen, Normal: Skin and Normal: Neurological Plan Diagnosis/Plan: Unchanged I have reviewed the history and physical and performed a pertinent physical examination on my patient. No changes have occurred unless specified. Time Spent With Patient Time: Total time managing care of this patient today ____ minutes.
--- NOTE | 2023-11-04 10:13 | W.PM.OPN ---
Operative Note Operative Note Date of Service: 11/04/23 Narrative: Operative Information Procedure Description: Colonoscopy Indication: screening Anesthesia: MAC COLONOSCOPY Instrument: Olympus variable stiffness pediatric scope 190L Colonoscopy Monitoring: Vital signs and clinical assessment, continuous EKG monitoring, Pulse oximetry, Carbon Dioxide monitoring and blood pressure monitoring were done throughout the procedure. Colon withdrawal time was 9 minutes. Procedure: The patient was placed in the left lateral decubitis position and pre-procedure medications were administered. After a digital rectal examination of the ano-rectum, the video colonoscope was inserted into the rectum and advanced through the colon to the cecum/TI. The colonoscope was slowly withdrawn in a retrograde panoramic fashion and the colon mucosa was carefully examined including a retroflexed view of the rectum. Findings and interventions are described below. Procedure Difficulty: easy Findings: Terminal Ileum-normal Cecum:normal Ascending Colon: 10 mm sessile polyp removed with cold snare, several diverticula seen Transverse Colon -normal Descending Colon:normal Sigmoid Colon: severe diverticulosis Rectum: Retroflexion with small internal hemorrhoids seen, grade I Anorectum - normal Intervention: cold snare Colon preparation: [place] Bowel Preparation Scale Right colon; 2 Transverse colon: 2 Left colon; 2 (0 = Unprepared colon segment with mucosa not seen due to solid stool that cannot be cleared. 1 = Portion of mucosa of the colon segment seen, but other areas of the colon segment not well seen due to staining, residual stool and/or opaque liquid. 2 = Minor amount of residual staining, small fragments of stool and/or opaque liquid, but mucosa of colon segment seen well. 3 = Entire mucosa of colon segment seen well with no residual staining, small fragments of stool or opaque liquid) Impression and Post Procedure Diagnosis: diverticulosis colon polyp internal hemorrhoids Plan: High fiber diet leaflet Avoid straining at stool, epsom salts and sitz bath, anusol supps or cream Repeat Colonoscopy in 5 years due to adenomatous appearing polyp or earlier if clinically indicated Above findings were reviewed with the patient and relevant handouts were provided if indicated.
[2023-11-04 10:52] VITALS: BP 118/73; PULSE 72; RESP 16; TEMP 36.6; O2SAT 99
[2023-11-04 11:07] VITALS: BP 129/83; PULSE 60; RESP 16; TEMP 36.7; O2SAT 99
== END 2023-11-04 11:42 | disposition home or self-care (01) ==
PROVIDERS: PCP Physician Assistant; Visit Provider Internal Medicine Gastroenterology
PROC: 0DJD8ZZ Inspection of Lower Intestinal Tract, Via Natural or Artificial Opening Endoscopic (ICD-10-PCS; CPT 45378; principal; 2023-11-04 11:40)
DX: Z12.11 Encounter for screening for malignant neoplasm of colon (principal); D12.2 Benign neoplasm of ascending colon; K57.30 Diverticulosis of large intestine without perforation or abscess without bleeding; K64.0 First degree hemorrhoids
CPT/HCPCS: 45385; 88305

== ENCOUNTER → 2023-11-04 08:54 | Outpatient (BNV) | payer OTHER, SELFPAY | PROVIDERS: PCP Physician Assistant; Visit Provider Internal Medicine Gastroenterology | DX: Z12.11 Encounter for screening for malignant neoplasm of colon (principal); D12.2 Benign neoplasm of ascending colon; K57.30 Diverticulosis of large intestine without perforation or abscess without bleeding; K64.0 First degree hemorrhoids | CPT/HCPCS: 45385 ==

== ENCOUNTER 2024-02-23 14:17 | Outpatient (AMB) | payer OTHER, SELFPAY ==
[2024-02-23 14:26] VITALS: BP 120/72; PULSE 70; O2SAT 97; BMI 23.0
--- NOTE | 2024-02-23 14:26 | MHC.PC.OV ---
Vital Signs 02/23/24 14:26 Height 5 ft 8 in Weight 151 lb 4 oz BMI 23.0 BP 120/72 Blood Pressure Location Lt brachial Position Sitting Pulse 70 Pulse Source Pulse Oximeter Pulse Oximetry (%) 97 Oxygen Delivery Method Room Air Intake Visit Reasons: PE Intake Note: Patient is here today for a physical. 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 Accompanied by: Self / Same As Patient Allergies No Known Allergies [No Known Allergies*] Allergy (Verified 02/23/24 14:31) Medication List - Last Reconciled 02/23/24 by Ace Barriga PA-C atorvastatin 20 mg PO DAILY 90 days Tobacco use date assessed: 02/23/24 Dental Screening Dental Screen Date: 02/23/24 Did you have a dental visit in the last 12 months?: Yes Did you have a dental problem in the last 6 months where you did not have access to dental care?: No Was dental information given to patient?: Patient has dentist HPI PE HPI Details Patient is 63-year-old male here today for routine annual physical. Patient has a past medical history significant for hyperlipidemia,, head and neck tremor, Concern--> reports his right bunion has been very painful. Has not been able to wear his work boots due to the pain. Has been wearing soft wide shoes without much issue. 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 Tremor: Also remains with a head and neck tremor. He does report having somewhat of a tremor is upper extremities that causes his sometimes difficulties with writing. Does report family history of parkinsonian syndrome. He will discuss the symptoms with neurologist at upcoming appointment March 04 . Hyperlipidemia: Has restarted using statin therapy(atorvastatin 20 mg). Most recent lipid panel showing good control of his total cholesterol and LDL. Colorectal cancer screening- colonoscopy done in spring, tubular adenoma Polyp found, repeat in 5 years vaccines: Up-to-date with tetanus and COVID vaccine, considering shingles vaccine Laboratory Tests 11/02/22 02/21/23 08:06 07:45 RBC 5.41 Creatinine 1.05 Cholesterol 253 182 LDL Cholesterol, C alc 169 TSH 1.27 [facility] Medical History Atherosclerotic cardiovascular disease Surgical History H/O colonoscopy History of rotator cuff surgery Family History Mother Heart disease Lung cancer Breast cancer Father Heart disease CAD (coronary artery disease) Parkinson disease Hypertension Hypercholesteremia Hemochromatosis Sudden cardiac arrest Myocardial infarction Benign prostatic hyperplasia CKD (chronic kidney disease) Sister Breast cancer Social History Household Members Other:: single- 2 adult kids Housing: House Alcohol intake: current Alcohol intake frequency: a few times a month Alcohol type: beer Patient Tobacco Use Status: Never used Tobacco e-Cigarette/Vaping Use: Never Used Second Hand Smoke Exposure: No service: No Current occupational status: employed Cognitive needs: No Hearing needs: No Vision needs: Yes (glasses) Questionnaire PHQ-9 Over the last 2 weeks, how often have you been bothered by any of the following problems? 1. Little interest or pleasure in doing things: not at all 2. Feeling down, depressed, or hopeless: not at all 3. Trouble falling or staying asleep, or sleeping too much: not at all 4. Feeling tired or having little energy: not at all 5. Poor appetite or overeating: not at all 6. Feeling bad about yourself - or that you are a failure or have let yourself or your family down: not at all 7. Trouble concentrating on things, such as reading the newspaper or watching television: not at all 8. Moving or speaking so slowly that other people could have noticed. Or the opposite - being so fidgety or restless that you have been moving around a lot more than usual: not at all 9. Thoughts that you would be better off or of hurting yourself in some way: not at all Total score: 0 Depression Screening Interpretation: Negative Depression Screening Done: Yes 95798 - PHQ-9 Billing: Yes Source: Developed by Drs. Álvaro Gonzalez, Jeanine Schmidt, Yohan Jolly and colleagues, with an educational matthieu from [employer]. Thrive Questionnaire Date Thrive assessed: 02/23/24 I am a: Patient What is your living situation today?: I have a steady place to live Within the past 12 months, did the food you bought not last and you didn't have the money to get more?: Never true Within the past 12 months, did you worry whether your food would run out before you got money to buy more?: Never true Do you have trouble paying for medicines?: No Do you have trouble getting transportation to medical appointments?: No Do you have trouble paying your heating and electricity bill?: No Do you have trouble taking care of your child, family member or friend?: No Do you have trouble with day-to-day activities such as bathing, preparing meals, shopping, managing finances, etc.?: No Are you currently unemployed and looking for a job?: No Are you interested in more education?: No Please select the resources that you would like help with: None Currently or been in a relationship where the following occur: No concerns reported THRIVE Score: 0 AUDIT C Alcohol Use Questionnaire (AUDIT-C) 1. How often do you have a drink containing alcohol?: 2-3 times a week 2. How many drinks containing alcohol do you have on a typical day when you are drinking?: 1 or 2 3. How often do you have six or more drinks on one occasion?: Never Total Score: 3 KISHA-7 AMB Questionnaire KISHA-7 Date KISHA - 7 assessed: 02/23/24 Feeling nervous, anxious, or on edge: 0 = Not at all Not being able to stop or control worryin = Not at all Worrying too much about different things: 0 = Not at all Trouble relaxin = Not at all Being so restless that it is hard to sit still: 0 = Not at all Becoming easily annoyed or irritable: 0 = Not at all Feeling afraid as if something awful might happen: 0 = Not at all Total KISHA-7 score (0-4 normal; 5-9 mild; 10-14 moderate; 15-21 severe): 0 Source: Developed by Drs. Álvaro Gonzalez, Jeanine Schmidt, Yohan Jolly and colleagues, with an educational matthieu from [employer]. KISHA-7 Assessment Billing KISHA-7 Assessment Tool: KISHA-7 Assessment 11176 Review of Systems Const Denies body aches, Denies chills, Denies excessive sweating, Denies fatigue, Denies fever(s) and Denies headache(s) Eyes Denies blurry vision ENT Denies dysphagia, Denies vertigo, Denies dizziness, Denies headache(s), Denies hearing loss and Denies tinnitus Card Denies chest pain, Denies chest pain with activity, Denies syncope, Denies irregular heart rhythm and Denies dyspnea Resp Denies chest congestion, Denies cough, Denies hemoptysis, Denies dyspnea and Denies wheezing GI Denies abdominal pain, Denies melena, Denies hematochezia, Denies coffee ground emesis, Denies dysphagia, Denies diarrhea, Denies nausea and Denies vomiting Denies difficulty urinating, Denies dysuria, Denies urinary frequency, Denies urinary hesitancy and Denies urinary urgency Musc Denies arthralgias, Denies limited range of motion, Denies muscle cramps and Denies muscle weakness Skin/Breast Denies rash and Denies skin ulcer Neuro Denies Abnormal speech present, Denies confusion, Denies vertigo, Denies dizziness, Denies syncope, Denies headache(s), Denies memory loss and Denies seizure-like activity Psych Denies anxiety, Denies confusion, Denies depression, Denies memory loss, Denies panic attacks and Denies paranoia Endo Denies excessive sweating, Denies fatigue, Denies flushing, Denies polydipsia and Denies polyuria Aller/Immun Denies wheezing Physical exam (Primary Care) Vital Signs: Last Vital Signs Pulse 70 02/23/24 14:26 BP 120/72 02/23/24 14:26 Pulse Ox 97 02/23/24 14:26 Oxygen Delivery Method Room Air 02/23/24 14:26 BMI result Body Mass Index 23.0 Tobacco/Smoking Status: Tobacco use Status Tobacco use date assessed 02/23/24 02/23/24 14:32 Patient Tobacco Use Status Never used Tobacco 02/23/24 14:37 e-Cigarette/Vaping Use Never Used 02/23/24 14:37 PHQ-9: PHQ-9 Score PHQ-9: Total score 0 02/23/24 14:32 Depression Screening Interpretation: Negative Thrive Assessment: Date of Thrive Assessment Date Thrive assessed 02/23/24 02/23/24 14:29 Currently or been in a relationship where the following occur: No concerns reported Const General: cooperative, comfortable, no acute distress, alert and awake; No confusion Orientation/consciousness: oriented to person, oriented to place, patient oriented x3 and No confusion HENIL Head: Yes normocephalic Ears: external ears normal and TM's normal bilaterally Face and sinus: No sinus tenderness Mouth: Normal oral and palatal mucosa present and tongue normal Teeth and gingiva: dentition normal and gingiva normal Throat: Yes posterior oropharynx normal, Yes tonsils normal and Yes uvula midline Eyes Conjunctivae: conjunctivae normal Sclerae: sclerae normal Pupils: Equal, round and reactive pupils present EOM: EOMs intact bilaterally Direct Ophthalmoscopy: No no photophobia Neck Neck: Yes no lymphadenopathy, No tender and Yes no JVD Thyroid: Thyroid normal Carotids: no bruits Chest Chest palpation & inspection: no tenderness Resp Effort & Inspection: normal respiratory effort, no audible wheezes, not labored and no stridor Auscultation: no crackles, no rales, no rhonchi and no wheezes Cardio Jugular venous distension: no JVD Rate: regular rate, not bradycardic and not tachycardic Rhythm: regular rhythm Bruits: no carotid bruits Peripheral pulses: Peripheral pulses 2+ throughout GI Inspection: Yes normal to inspection, No abdominal wall ecchymosis and No visible herniation Palpation (GI): Soft to palpation, nontender, no guarding, not rigid and No hepatosplenomegaly present Auscultation: normoactive bowel sounds General: Yes no CVA tenderness Back/Spine/Pelvis Back: no CVA tenderness and No back tenderness Cervical Spine: cervical ROM normal Thoracic/Lumbar Spine: thoracic and lumbar spine normal to inspection, straight leg raise negative bilaterally, No thoraco-lumbar ROM limited and No lumbar spinal tenderness Skin Lesions: no lesions Rashes: no rashes Wounds: no wounds Neuro General: oriented to person, oriented to place, patient oriented x3, CN's II-XI intact bilaterally and No confusion Cranial nerves: Yes Equal, round and reactive pupils present and Yes Normal accommodation reflex present Cognition (Neuro): normal cognition Speech: No Abnormal speech present Gait exam (Neuro): Normal gait present Motor exam (neuro): 5/5 motor strength present throughout Extrem Right upper extremity: full ROM; no cyanosis Left upper extremity: full ROM; no cyanosis Right lower extremity: no edema Left lower extremity: no edema Ankle/foot/toe images: 1. REDNESS AND MILD EDEMA, NOTABLE ANGULATION AT THE MTP AND 1ST DIGIT. Psych Appearance: grossly normal Mental Status: mental status grossly normal Affect: normal affect Attitude: cooperative Thought process: Normal thought process present Assessment and Plan Assessment & Plan (1) Annual physical exam: Code(s): Z00.00 - Encounter for general adult medical examination without abnormal findings (2) Bunion, right: Code(s): M21.611 - Bunion of right foot Plan: PER HPI, HAS A NOTABLE BUNION OVER BILATERAL FEET WORSE ON RIGHT SIDE. UNABLE TO WEARS WORK BOOTS DUE TO CONTINUED PAIN. Would like to see Podiatry for possible treatment. (3) HLD (hyperlipidemia): Code(s): E78.5 - Hyperlipidemia, unspecified Qualifiers: Hyperlipidemia type: mixed hyperlipidemia Qualified Code(s): E78.2 - Mixed hyperlipidemia Plan: Patient continues on atorvastatin 20 mg without side effect. Most recent lipid panel showing good control of his total cholesterol and LDL. Goal LDL is to remain below 130. (4) Tremor: Comment: LUE wingbeat tremor. Head tremor. BUE action tremor- raul on writing/drawing. Gait w/ decreased left arm swing. Code(s): R25.1 - Tremor, unspecified Plan: Continues to have a notable head and neck tremor otherwise is able to perform all activities of daily living. Will be following up in Neurology in near future. Orders: Orders Comprehensive [place]. Panel Fast 02/23/24 E78.2 - Mixed hyperlipidemia Complete Blood Count no Diff 02/23/24 E78.2 - Mixed hyperlipidemia Lipid Panel 02/23/24 E78.2 - Mixed hyperlipidemia Prostate Specific Antigen Scr 02/23/24 E78.2 - Mixed hyperlipidemia, Z12.5 - Encounter for screening for malignant neoplasm of prostate Referrals Podiatry Referral M21.611 - Bunion of right foot Patient Instructions: Goal: Goal LDL to be below 130 Barriers: Adherence to physical activity and healthy eating habits Coding Level of Care Code Est Pt Prev Care 40-64y(66803) Diagnoses Annual physical exam Z00.00 Bunion, right M21.611 Mixed hyperlipidemia E78.2 Hyperlipidemia type: mixed hyperlipidemia Tremor R25.1 Additional Codes KISHA-7 Assessment Billing - KISHA-7 Assessment Tool: KISHA-7 Assessment [id number] ([id number])
== END 2024-02-23 14:59 | disposition home or self-care (01) ==
PROVIDERS: PCP Physician Assistant; Visit Provider Physician Assistant
DX: Z00.00 Encounter for general adult medical examination without abnormal findings (principal); M21.611 Bunion of right foot; E78.2 Mixed hyperlipidemia; R25.1 Tremor, unspecified
CPT/HCPCS: 99396

== ENCOUNTER 2024-04-12 07:09 | Outpatient (REF) | payer OTHER, SELFPAY ==
[2024-04-12 10:37] LABS: Hematocrit 44.7 % (42.0-52.0); Hemoglobin 14.7 g/dl (14.0-18.0); Mean Corpuscular HGB Conc 32.9 g/dl (31.0-36.0); Mean Corpuscular Hemoglobin 29.8 pg (27.0-33.0); Mean Corpuscular Volume 90.7 fL (80.0-98.0); Mean Platelet Volume 11.9 fL (9.4-12.4); Platelet Count 192 X10*3/uL (160-400); Red Blood Count 4.93 X10*6/uL (4.60-5.80); Red Cell Distribution Width 13.9 % (11.0-16.0); White Blood Count 4.8 X10*3/uL (4.8-10.8)
[2024-04-12 10:57] LABS: Alanine Aminotransferase 31 U/L (0-40); Albumin Level 4.1 g/dL (3.5-5.0); Alkaline Phosphatase 74 U/L (39-117); Anion Gap 12 (12-20); Aspartate Amino Transferase 23 U/L (5-37); Bilirubin Total 0.7 mg/dL (0.0-1.0); Blood Urea Nitrogen 16 mg/dL (9-16); Calcium 9.2 mg/dL (8.4-10.2); Carbon Dioxide 29 mmol/L (22-29); Chloride 106 mmol/L (96-108); Cholesterol 158 mg/dL (<200); Estimated Glomerular Filt Rate > 60; Glucose Fasting 98 mg/dL (60-99); HDL Cholesterol 67 mg/dL (>40); LDL Cholesterol Calculated 78 mg/dL (<100); Sodium 143 mmol/L (135-145); Total Protein 6.7 g/dL (6.5-8.0); Triglycerides 69 mg/dL (<150)
[2024-04-12 11:27] LABS: Prostate Specific Antigen Scr 2.99 ng/mL (<0.05-4.0)
== END 2024-04-12 07:10 | disposition home or self-care (01) ==
LOC: HO.HMGCLDS 07:09
PROVIDERS: PCP Physician Assistant; Visit Provider Physician Assistant
DX: E78.2 Mixed hyperlipidemia (principal); Z12.5 Encounter for screening for malignant neoplasm of prostate
CPT/HCPCS: 36415; 80053; 80061; 84153; 85027

== ENCOUNTER 2024-06-28 10:40 | Outpatient (AMB) | payer OTHER, SELFPAY ==
[2024-06-28 11:15] VITALS: BP 122/76; PULSE 66; O2SAT 97; BMI 24.5
--- NOTE | 2024-06-28 11:15 | MHC.PC.OV ---
Vital Signs 06/28/24 11:15 Height 5 ft 8 in Weight 161 lb BMI 24.5 BP 122/76 Blood Pressure Location Lt brachial Position Sitting Pulse 66 Pulse Source Pulse Oximeter Pulse Oximetry (%) 97 Oxygen Delivery Method Room Air Intake Visit Reasons: Orthopedic 07/09 Intake Note: Patient is here for a Pre-op for bunionectomy scheduled with Dr. Marrero at [facility] on 07/09/24, . 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 Alberto is due for a bunionectomy being done at [facility] Patient has a past medical history significant for hyperlipidemia,, head and neck tremor, Patient has no history of Congestive heart failure, mi or CVA. He is not on any anticoagulation or antiplatelet therapy. CHRONIC MEDICAL CONDITIONS--> Tremor: Also remains with a head and neck tremor. He does report having somewhat of a tremor is upper extremities that causes his sometimes difficulties with writing. Does report family history of parkinsonian syndrome. He will discuss the symptoms with neurologist at upcoming appointment March 04 . Hyperlipidemia: Has restarted using statin therapy(atorvastatin 20 mg). Most recent lipid panel showing good control of his total cholesterol and LDL. [facility] Medical History Atherosclerotic cardiovascular disease Surgical History H/O colonoscopy History of rotator cuff surgery Family History Mother Heart disease Lung cancer Breast cancer Father Heart disease CAD (coronary artery disease) Parkinson disease Hypertension Hypercholesteremia Hemochromatosis Sudden cardiac arrest Myocardial infarction Benign prostatic hyperplasia CKD (chronic kidney disease) Sister Breast cancer Social History Household Members Other:: single- 2 adult kids Housing: House Alcohol intake: current Alcohol intake frequency: a few times a month Alcohol type: beer Patient Tobacco Use Status: Never used Tobacco e-Cigarette/Vaping Use: Never Used Second Hand Smoke Exposure: No service: No Current occupational status: employed Cognitive needs: No Hearing needs: No Vision needs: Yes (glasses) Questionnaire Thrive Questionnaire Date Thrive assessed: 02/23/24 AUDIT C Alcohol Use Questionnaire (AUDIT-C) 2. How many drinks containing alcohol do you have on a typical day when you are drinking?: 1 or 2 3. How often do you have six or more drinks on one occasion?: Never Total Score: 0 KISHA-7 AMB Questionnaire KISHA-7 Date KISHA - 7 assessed: 02/23/24 Source: Developed by Drs. Álvaro Gonzalez, Jeanine Schmidt, Yohan Jolly and colleagues, with an educational matthieu from [employer]. Review of Systems Const Denies headache(s) Eyes Denies loss of vision ENT Denies vertigo, Denies dizziness, Denies headache(s) and Denies sore throat Card Denies chest pain, Denies leg edema and Denies lightheadedness Resp Denies cough, Denies hemoptysis and Denies wheezing GI Denies abdominal pain, Denies melena, Denies constipation, Denies diarrhea and Denies vomiting Denies dysuria, Denies urinary frequency and Denies urinary urgency Musc Denies arthralgias, Denies joint swelling, Denies numbness and Denies tingling Neuro Denies Abnormal speech present, Denies behavioral changes, Denies vertigo, Denies dizziness, Denies headache(s), Denies loss of vision, Denies memory loss, Denies numbness and Denies tingling Psych Denies anxiety, Denies behavioral changes, Denies depression, Denies memory loss and Denies panic attacks Ashwin/Lymph Denies easy bleeding and Denies easy bruising Aller/Immun Denies wheezing Physical exam (Primary Care) Vital Signs: Last Vital Signs Pulse 66 06/28/24 11:15 BP 122/76 06/28/24 11:15 Pulse Ox 97 06/28/24 11:15 Oxygen Delivery Method Room Air 06/28/24 11:15 BMI result Body Mass Index 24.5 Tobacco/Smoking Status: Tobacco use Status Tobacco use date assessed 02/23/24 06/28/24 11:16 Patient Tobacco Use Status Never used Tobacco 06/28/24 11:16 e-Cigarette/Vaping Use Never Used 06/28/24 11:16 Thrive Assessment: Date of Thrive Assessment Date Thrive assessed 02/23/24 06/28/24 11:16 Const General: healthy appearing, no acute distress, alert and awake Nutritional Appearance: well nourished Orientation/consciousness: oriented to person, oriented to place and oriented to time HENMT Ears: TM's normal bilaterally General nose exam: Normal nasal mucous membranes and turbinates present Eyes Conjunctivae: conjunctivae normal Sclerae: sclerae normal Pupils: Equal, round and reactive pupils present Neck Neck: Yes no lymphadenopathy and Yes no JVD Thyroid: Thyroid normal Carotids: no bruits Resp Effort & Inspection: normal respiratory effort and not tachypneic Auscultation: no crackles, no rales, no rhonchi and no wheezes Cardio Rate: regular rate Rhythm: regular rhythm Heart sounds: no murmurs and normal S1 and S2 GI Palpation (GI): Soft to palpation, nontender, no hepatomegaly and no splenomegaly Auscultation: normal bowel sounds Skin General skin exam: no rashes or lesions noted and dry skin Neuro General: oriented to person, oriented to place and oriented to time Cranial nerves: Yes Equal, round and reactive pupils present Speech: No Abnormal speech present Gait exam (Neuro): Normal gait present Motor exam (neuro): no tremor noted Extrem Right upper extremity: full ROM Left upper extremity: full ROM Right lower extremity: full ROM; no edema Left lower extremity: full ROM; no edema Psych Mental Status: mental status grossly normal Speech and movement: Normal speech and movement present Affect: normal affect Attitude: cooperative Thought process: Normal thought process present Coding Level of Care Code Est Pt Level 3 (16995) Diagnoses Pre-op evaluation Z01.818 Acute cough R05.1 Cough type: acute Bunion, right M21.611 Assessment & Plan Assessment & Plan (1) Pre-op evaluation: Code(s): Z01.818 - Encounter for other preprocedural examination Category: Medical Plan: Patient's recent labs and vitals today's stable. Recent EKG and chest x-ray normal. Patient is medically clear for elective bunionectomy procedure He does mention he would like to fly down to [place] shortly after his surgery to recover in the warm weather state with his daughter. Did explain to him that there is a high-risk for DVT after surgery and he does understand his risk. He will ask a surgeon about flying after his particular surgery as well (2) Cough: Code(s): R05.9 - Cough, unspecified Category: Medical Qualifiers: Cough type: acute Qualified Code(s): R05.1 - Acute cough Plan: Does report having a cough over the last week that is only notable in the morning. No fevers or productivity of the cough. Will send for chest x-ray to out any pneumonia. (3) Bunion, right: Code(s): M21.611 - Bunion of right foot Category: Medical Plan: As above Orders: Orders XR chest 2V 06/28/24 R05.9 - Cough, unspecified Complete Blood Count no Diff 06/28/24 Z01.818 - Encounter for other preprocedural examination Prothrombin Time INR 06/28/24 Z01.818 - Encounter for other preprocedural examination ECG 12 lead EKG 06/28/24 Z01.818 - Encounter for other preprocedural examination Basic Metabolic Panel 06/28/24 Z01.818 - Encounter for other preprocedural examination
== END 2024-06-28 11:51 | disposition home or self-care (01) ==
PROVIDERS: PCP Physician Assistant; Visit Provider Physician Assistant
DX: Z01.818 Encounter for other preprocedural examination (principal); R05.1 Acute cough; M21.611 Bunion of right foot

== ENCOUNTER → 2024-06-28 10:40 | Outpatient (REF) | payer OTHER, SELFPAY ==
--- NOTE | ~2024-06-28 | XR_ITS ---
EXAMINATION: XR CHEST CLINICAL INFORMATION: R05.9 - Cough, unspecified COMPARISON: None available. TECHNIQUE: 2 views of the chest were obtained. FINDINGS: No significant abnormality is noted involving the heart, lungs, mediastinum, bony thorax or soft tissues. XR/XR chest 2V IMPRESSION: Unremarkable examination. Electronically signed by: Kerrie Brown MD 06/28/2024 02:31 PM [facility]
--- NOTE | 2024-06-28 12:00 | ECG_ITS ---
Test Reason : PRE OP Blood Pressure : / mmHG Vent. Rate : 060 BPM Atrial Rate : 060 BPM P-R Int : 190 ms QRS Dur : 078 ms QT Int : 398 ms P-R-T Axes : 070 065 054 degrees QTc Int : 398 ms Normal sinus rhythm Normal ECG No previous ECGs available Referred By: Ace Barriga Electronically Signed By:DC SIDHU MD
[2024-06-28 12:36] LABS: Hematocrit 44.9 % (42.0-52.0); Hemoglobin 14.9 g/dl (14.0-18.0); Mean Corpuscular HGB Conc 33.2 g/dl (31.0-36.0); Mean Corpuscular Hemoglobin 29.6 pg (27.0-33.0); Mean Corpuscular Volume 89.1 fL (80.0-98.0); Mean Platelet Volume 10.9 fL (9.4-12.4); Platelet Count 187 X10*3/uL (160-400); Red Blood Count 5.04 X10*6/uL (4.60-5.80); Red Cell Distribution Width 13.8 % (11.0-16.0); White Blood Count 5.7 X10*3/uL (4.8-10.8)
[2024-06-28 12:40] LABS: INTERNATIONAL NORM RATIO 0.9 (0.9-1.1); Prothrombin Time 10.8 SEC (10.9-12.4)
[2024-06-28 13:10] LABS: Anion Gap 12 (12-20); Blood Urea Nitrogen 17 mg/dL (9-16); Calcium 9.7 mg/dL (8.4-10.2); Carbon Dioxide 30 mmol/L (22-29); Chloride 103 mmol/L (96-108); Estimated Glomerular Filt Rate > 60; Glucose Random 96 mg/dL (60-115); Sodium 140 mmol/L (135-145)
== END ==
LOC: HO.CARD 10:40
PROVIDERS: PCP Physician Assistant; Visit Provider Physician Assistant
DX: Z01.818 Encounter for other preprocedural examination (principal); R05.9 Cough, unspecified; M21.611 Bunion of right foot
CPT/HCPCS: 36415; 71046; 80048; 85027; 85610; 93005; 99212

== ENCOUNTER → 2024-06-28 12:00 | Outpatient (BNV) | payer OTHER, SELFPAY | PROVIDERS: PCP Physician Assistant; Visit Provider Internal Medicine Cardiovascular Disease | DX: Z01.810 Encounter for preprocedural cardiovascular examination (principal) | CPT/HCPCS: 93010 ==

== ENCOUNTER 2024-10-26 10:13 | Outpatient (AMB) | payer OTHER, SELFPAY ==
[2024-10-26 10:14] VITALS: BP 120/76; PULSE 70; TEMP 36.3; O2SAT 93; BMI 23.0
--- NOTE | 2024-10-26 10:14 | MHC.PC.OV ---
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 Accompanied by: Self / Same As Patient Allergies No Known Allergies [No Known Allergies*] Allergy (Verified 10/26/24 10:26) Medication List - Last Reconciled 10/26/24 by Ace Barriga PA-C atorvastatin 20 mg PO DAILY 90 days Tobacco use date assessed: 10/26/24 Dental Screening Dental Screen Date: 10/26/24 Did you have a dental visit in the last 12 months?: No Did you have a dental problem in the last 6 months where you did not have access to dental care?: No Was dental information given to patient?: Patient has dentist HPI (L) elbow pain and swelling HPI Details The patient is a 64-year-old male presenting with elbow swelling and discomfort. He first noticed the swelling in his elbow about a week ago. The patient reports increased awareness of the condition due primarily to others pointing it out. He has since registered a worsening of symptoms, with discomfort noted upon applying pressure or leaning on the affected elbow. [facility] Medical History Atherosclerotic cardiovascular disease Surgical History H/O colonoscopy History of rotator cuff surgery Family History Mother Heart disease Lung cancer Breast cancer Father Heart disease CAD (coronary artery disease) Parkinson disease Hypertension Hypercholesteremia Hemochromatosis Sudden cardiac arrest Myocardial infarction Benign prostatic hyperplasia CKD (chronic kidney disease) Sister Breast cancer Social History Household Members Other:: single- 2 adult kids Housing: House Alcohol intake: current Alcohol intake frequency: a few times a month Alcohol type: beer Patient Tobacco Use Status: Never used Tobacco e-Cigarette/Vaping Use: Never Used Second Hand Smoke Exposure: No service: No Current occupational status: employed Cognitive needs: No Hearing needs: No Vision needs: Yes (glasses) Questionnaire PHQ-9 Over the last 2 weeks, how often have you been bothered by any of the following problems? 1. Little interest or pleasure in doing things: not at all 2. Feeling down, depressed, or hopeless: not at all 3. Trouble falling or staying asleep, or sleeping too much: not at all 4. Feeling tired or having little energy: not at all 5. Poor appetite or overeating: not at all 6. Feeling bad about yourself - or that you are a failure or have let yourself or your family down: not at all 7. Trouble concentrating on things, such as reading the newspaper or watching television: not at all 8. Moving or speaking so slowly that other people could have noticed. Or the opposite - being so fidgety or restless that you have been moving around a lot more than usual: not at all 9. Thoughts that you would be better off or of hurting yourself in some way: not at all Total score: 0 Depression Screening Interpretation: Negative Depression Screening Done: Yes 81798 - PHQ-9 Billing: Yes Source: Developed by Drs. Álvaro Gonzalez, Jeanine Schmidt, Yohan Jolly and colleagues, with an educational matthieu from [employer]. Thrive Questionnaire Date Thrive assessed: 10/26/24 I am a: Patient What is your living situation today?: I have a steady place to live Within the past 12 months, did the food you bought not last and you didn't have the money to get more?: Never true Within the past 12 months, did you worry whether your food would run out before you got money to buy more?: Never true Do you have trouble paying for medicines?: No Do you have trouble getting transportation to medical appointments?: No Do you have trouble paying your heating and electricity bill?: No Do you have trouble taking care of your child, family member or friend?: No Do you have trouble with day-to-day activities such as bathing, preparing meals, shopping, managing finances, etc.?: No Are you currently unemployed and looking for a job?: No Are you interested in more education?: No Please select the resources that you would like help with: None Currently or been in a relationship where the following occur: No concerns reported THRIVE Score: 0 AUDIT C Alcohol Use Questionnaire (AUDIT-C) 1. How often do you have a drink containing alcohol?: Monthly or less 2. How many drinks containing alcohol do you have on a typical day when you are drinking?: 1 or 2 3. How often do you have six or more drinks on one occasion?: Never Total Score: 1 KISHA-7 AMB Questionnaire KISHA-7 Date KISHA - 7 assessed: 10/26/24 Feeling nervous, anxious, or on edge: 0 = Not at all Not being able to stop or control worryin = Not at all Worrying too much about different things: 0 = Not at all Trouble relaxin = Not at all Being so restless that it is hard to sit still: 0 = Not at all Becoming easily annoyed or irritable: 0 = Not at all Feeling afraid as if something awful might happen: 0 = Not at all Total KISHA-7 score (0-4 normal; 5-9 mild; 10-14 moderate; 15-21 severe): 0 Source: Developed by Drs. Álvaro Gonzalez, Jeanine Schmidt, Yohan Jolly and colleagues, with an educational matthieu from [employer]. KISHA-7 Assessment Billing KISHA-7 Assessment Tool: KISHA-7 Assessment 44581 Review of Systems Const Denies headache(s) Eyes Denies loss of vision ENT Denies vertigo, Denies dizziness, Denies headache(s) and Denies sore throat Card Denies chest pain, Denies leg edema and Denies lightheadedness Resp Denies cough, Denies hemoptysis and Denies wheezing GI Denies abdominal pain, Denies melena, Denies constipation, Denies diarrhea and Denies vomiting Denies dysuria, Denies urinary frequency and Denies urinary urgency Musc Denies arthralgias, Denies joint swelling, Denies numbness and Denies tingling Neuro Denies Abnormal speech present, Denies behavioral changes, Denies vertigo, Denies dizziness, Denies headache(s), Denies loss of vision, Denies memory loss, Denies numbness and Denies tingling Psych Denies anxiety, Denies behavioral changes, Denies depression, Denies memory loss and Denies panic attacks Ashwin/Lymph Denies easy bleeding and Denies easy bruising Aller/Immun Denies wheezing Physical exam (Primary Care) Vital Signs: Last Vital Signs Temp 97.3 F 10/26/24 10:14 Pulse 70 10/26/24 10:14 BP 120/76 10/26/24 10:14 Pulse Ox 93 10/26/24 10:14 Oxygen Delivery Method Room Air 10/26/24 10:14 BMI result Body Mass Index 23.0 Tobacco/Smoking Status: Tobacco use Status Tobacco use date assessed 10/26/24 10/26/24 10:27 Patient Tobacco Use Status Never used Tobacco 10/26/24 10:16 e-Cigarette/Vaping Use Never Used 10/26/24 10:16 PHQ-9: PHQ-9 Score PHQ-9: Total score 0 10/26/24 10:27 Depression Screening Interpretation: Negative Thrive Assessment: Date of Thrive Assessment Date Thrive assessed 10/26/24 10/26/24 10:27 Currently or been in a relationship where the following occur: No concerns reported Const General: healthy appearing, no acute distress, alert and awake Nutritional Appearance: well nourished Orientation/consciousness: oriented to person, oriented to place and oriented to time HENMT Ears: TM's normal bilaterally General nose exam: Normal nasal mucous membranes and turbinates present Eyes Conjunctivae: conjunctivae normal Sclerae: sclerae normal Pupils: Equal, round and reactive pupils present Neck Neck: Yes no lymphadenopathy and Yes no JVD Thyroid: Thyroid normal Carotids: no bruits Resp Effort & Inspection: normal respiratory effort and not tachypneic Auscultation: no crackles, no rales, no rhonchi and no wheezes Cardio Rate: regular rate Rhythm: regular rhythm Heart sounds: no murmurs and normal S1 and S2 GI Palpation (GI): Soft to palpation, nontender, no hepatomegaly and no splenomegaly Auscultation: normal bowel sounds Skin General skin exam: no rashes or lesions noted and dry skin Neuro General: oriented to person, oriented to place and oriented to time Cranial nerves: Yes Equal, round and reactive pupils present Speech: No Abnormal speech present Gait exam (Neuro): Normal gait present Motor exam (neuro): no tremor noted Extrem Right upper extremity: full ROM Left upper extremity: full ROM Elbow/forearm/wrist images: 1. OLECRANON BURSA NOTED , NO ERYTHEMA Right lower extremity: full ROM; no edema Left lower extremity: full ROM; no edema Psych Mental Status: mental status grossly normal Speech and movement: Normal speech and movement present Affect: normal affect Attitude: cooperative Thought process: Normal thought process present Coding Level of Care Code Est Pt Level 3 (46624) Diagnoses Olecranon bursitis, left elbow M70.22 Additional Codes KISHA-7 Assessment Billing - KISHA-7 Assessment Tool: KISHA-7 Assessment 74894 ([id number]) PHQ-9 - 39868 - PHQ-9 Billing: Yes ([id number]) Assessment & Plan Assessment & Plan (1) Olecranon bursitis, left elbow: Code(s): M70.22 - Olecranon bursitis, left elbow Category: Medical Plan: Reassurance about natural resolution; advised ice application and possible use of a brace. Avoid draining unless infection suspected; uses topical anti-inflammatories with noted past unpredictability in efficacy. Conservative measures advised to reduce discomfort and promote healing. X-ray considered unnecessary for diagnosis; treatment includes activity modification and management with Voltaren. Orders: Orders Lipid Panel Today E78.2 - Mixed hyperlipidemia Comprehensive [place]. Panel Fast Today E78.2 - Mixed hyperlipidemia Prostate Specific Antigen Scr Today E78.2 - Mixed hyperlipidemia, Z12.5 - Encounter for screening for malignant neoplasm of prostate Complete Blood Count no Diff Today E78.2 - Mixed hyperlipidemia Referrals Neurology Referral R25.1 - Tremor, unspecified
--- OUTSIDE RECORDS SUMMARY | 2024-10-26 12:00 | XMS_ITS | Clinical Summary ---
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 Name Role Phone No, Pcp ARCHAEOLOGIST Primary Care Provider Unavailabl e Social History Tobacco Use Types Packs/Day Years Used Date Smoking Tobacco: Never Assessed Sex and Gender Information Value Date Recorded Sex Assigned at Not on file Legal Sex Male 5:29 PM EDT Gender Identity Not on file Sexual Orientation Not on file Plan of Treatment Health Maintenance Due Date Last Done Comments Colorectal Cancer: COLONOSCO PY Screening every 10 yrs (or Modifier) 1961 Depression: Screening Annual ly using PHQ-2/9 in Adults 18 yrs or above (or HM Modifier)([facility]) 1979 Hepatitis C Virus Infection in Adolescents and Adults: Screening (or Modifier) ([facility]) 1979 SDMT Screening Reminder: Denise foss for all adults ([facility]) 1979 Tobacco Smoking Cessation: i n Adults excluding Women: Behavioral and Pharmacotherapy Interventions ([facility]) 1979 DTaP/Tdap/Td Vaccines ([facility]) (1 - Tdap) 1980 Lipid Screening: Every 5 yrs for Men aged 35+ (or HM Modifier) ([facility]) 1997 Colorectal Cancer Screening 45 -75 Yrs (or HM Modifier) 2006 Colorectal Cancer: FLEXIBLE SIGMOIDOSCOPY Screening every 5 yrs 2006 Colorectal Cancer: Fecal Immunochemical Test (FIT) Annually [facility] 2006 Colorectal Cancer: High-sens itivity gFOBT Screening Annually [facility] 2006 Colorectal Cancer: Stool Col oguard Screening every 3 yrs 2006 Colorectal Cancer:CT Colonog lizzie Screening every 5 yrs 2006 Zoster/Shingles Vaccine Seri es Screening: Adults aged 18+ yrs (or HM Modifiers)([facility]) (1 of 2) 2011 Flu Vaccination: Yearly for ages 18mos through 64 years (or Modifier)([facility]) 02/19/2024 COVID-19 Vaccine Screening: Initial Series and Booster Status ([facility]) ( - 2023- season) 2024 RSV Vaccines (1 - 1-dose 75+ series) 2036 Pneumococcal Vaccination Scr eening: Pts 0-19 & 19-49 yrs of age ([facility]) Aged Out No longer eligible based on patient's age to complete this topic Medical Devices Not on file Care Teams Leather Carver Relationship Specialty Start Date End Date No, Pcp, ARCHAEOLOGIST N/A Do not use PCP - General Family Medicine 04/25/20
--- OUTSIDE RECORDS SUMMARY | 2024-10-26 12:00 | XMS_ITS | Clinical Summary ---
Author Organization [facility] Address [address] [place] [address] Phone Care Team Providers Care Service Establishment Attendant Name Role Phone Maki Sen MD Primary Care Provider [phone] Allergies No known active allergies Medications atorvastatin (LIPITOR) 20 mg tablet Take 1 Tablet by mouth daily. Active Active Problems Problem Noted Date Diagnosed Date Acquired hallux valgus of right foot 07/09/2024 Hallux rigidus of right foot 07/09/2024 Bunion of right foot 03/26/2024 Atherosclerotic cardiovascular disease Hyperlipidemia 03/26/2024 Tremor 03/26/2024 Family History Medical History Relation Name Comments Lung cancer Mother Other: heart disease Mother Relation Name Status Comments Mother Social History Tobacco Use Types Packs/Day Years Used Date Smoking Tobacco: Never Assessed Sex and Gender Information Value Date Recorded Sex Assigned at Not on file Legal Sex Male 11:40 AM EDT Gender Identity Not on file Sexual Orientation Not on file Obstetrics History Last Filed Vital Signs Vital Sign Reading Time Taken Comments Blood Pressure - - Pulse - - Temperature - - Respiratory Rate - - Oxygen Saturation - - Inhaled Oxygen Concentration - - Weight 68 kg (150 lb) 07/09/2024 9:35 AM EST Height 170.2 cm (5' 7.01 ) 07/09/2024 9:35 AM ES T Body Mass Index 23.49 07/09/2024 9:35 AM EST Plan of Treatment Upcoming Encounters Date Type Department Care Team (Late st Contact Info) Description 11/05/2024 1:00 PM EDT Hospital Encounter [facility] Main OR [address] [place] [address] Saul Smith, DPM [address] [id number] 11/05/2024 1:00 PM EDT - 11/05/2024 2:30 PM EDT Surgery [facility] Main OR [address] [place] [id number] Saul Smith, DPM 175 [facility] [address] [place] [address] BUNIONECTOMY [[id number] (CPT??)] Scheduled Procedures Name Priority Associated Diagnoses Date/Ti me BUNIONECTOMY Acquired hallux valgus of right foot Hallux rigidus of right foot 11/05/2024 1:00 PM EDT Health Maintenance Due Date Last Done Comments Pneumococcal Vaccine: 50+ Years (1 of 1 - PCV) 2011 Zoster Vaccines (1 of 2) 2011 COVID-19 Vaccine (3 - 2023-2 5 season) 2024 04/05/2021, 02/03/2021 Cholesterol Screening (Lipid Panel) 05/04/2024 Colorectal Cancer Screening: Colonoscopy 05/04/2024 Depression Screening 05/04/2024 HIV Screening 05/04/2024 Hepatitis C Screening 05/04/2024 Social Influencers of Health Screening 05/04/2024 Influenza Vaccine (Season Ended) 2025 DTaP,Tdap,and Td Vaccines (3 - Td or Tdap) 03/12/2030 03/12/2020, 06/03/2010 RSV Immunization Adult Patients (1 - 1-dose 75+ series) 2036 HIB Vaccines Aged Out No longer eligi ble based on patient's age to complete this topic HPV Vaccines Aged Out No longer eligi ble based on patient's age to complete this topic Hepatitis A Vaccines Aged Out No long er eligible based on patient's age to complete this topic Hepatitis B Vaccines Aged Out No long er eligible based on patient's age to complete this topic IPV Vaccines Aged Out No longer eligi ble based on patient's age to complete this topic MMR Vaccines Aged Out No longer eligi ble based on patient's age to complete this topic Meningococcal ACWY Vaccine Aged Out N o longer eligible based on patient's age to complete this topic Meningococcal B Vaccine Aged Out No l onger eligible based on patient's age to complete this topic Pneumococcal Vaccine: Pediatrics (0 to 5 Years) and At-Risk Patients (6 to 64 Years) Aged Out No longer eligible b ased on patient's age to complete this topic RSV Immunization Patients Under 20 months Aged Out No longer eligible b ased on patient's age to complete this topic Varicella Vaccines Aged Out No longer eligible based on patient's age to complete this topic Insurance [facility] Care Teams Service Establishment Attendant Relationship Specialty Start Date End Date Maki Sen MD [address] [place] [address] Dr Joseph [address] [facility] [place] [address] PCP - General 02/25/24
== END 2024-10-26 10:49 | disposition home or self-care (01) ==
LOC: HO.HMCH 10:13
PROVIDERS: PCP Physician Assistant; Visit Provider Physician Assistant
DX: M70.22 Olecranon bursitis, left elbow (principal)

== ENCOUNTER → 2024-10-26 10:13 | Outpatient (BNVA) | payer OTHER, SELFPAY | PROVIDERS: PCP Physician Assistant; Visit Provider Physician Assistant | DX: M70.22 Olecranon bursitis, left elbow (principal) | CPT/HCPCS: 96127; 99212 ==

== ENCOUNTER 2025-03-04 06:42 | Outpatient (REF) | payer OTHER, SELFPAY ==
--- OUTSIDE RECORDS SUMMARY | 2025-03-04 06:45 | XMS_ITS | Clinical Summary ---
Author Organization [facility] Address [address] [place] [address] Phone Care Team Providers Care Econometrician Name Role Phone Maki Sen MD Primary Care Provider [phone] Allergies No known active allergies Medications atorvastatin [...] 07/09/2024 9:35 AM EST Plan of Treatment Health Maintenance Due Date Last Done Comments Pneumococcal Vaccine: 50+ Years (1 of 1 - PCV) 2011 Zoster Vaccines (1 of 2) 2011 COVID-19 Vaccine (2023-2 5 season) 2024 04/05/2021, 02/03/2021 Cholesterol Screening (Lipid Panel) 05/04/2024 Colorectal Cancer Screening: Colonoscopy 05/04/2024 HIV Screening 05/04/2024 Hepatitis C Screening 05/04/2024 Social Influencers of Health Screening 05/04/2024 Depression Screening 07/21/2024 Influenza Vaccine (#1) 2025 DTaP,Tdap,and Td Vaccines (3 - Td [...] patient's age to complete this topic Insurance [facility] Care Teams Econometrician Relationship Specialty Start Date End Date Maki Sen MD [address] [place] [address] [address] [facility] [place] [address] PCP - General 02/25/24
--- OUTSIDE RECORDS SUMMARY | 2025-03-04 06:45 | XMS_ITS | Clinical Summary ---
Author Organization [facility] [employer] [facility] Address [address] [place] [address] Care Team Providers Care Motor Checker Name Role Phone No, Pcp MAINTENANCE AND UTILITIES SUPERVISOR Primary Care Provider Unavailabl e Social History [...] Adults 18 yrs or above (or HM Modifier)([facility]) 1979 Hepatitis C Virus Infection in Adolescents and Adults: Screening (or Modifier) ([facility]) 1979 SDOR Screening Reminder: Denise foss for all adults ([facility]) 1979 Tobacco Smoking Cessation: i n Adults excluding Women: Behavioral and Pharmacotherapy Interventions ([facility]) 1979 DTaP/Tdap/Td Vaccines ([facility]) (1 - Tdap) 1980 Colorectal Cancer Screening 45 -75 Yrs (or HM Modifier ) 2006 Colorectal Cancer: FLEXIBLE SIGMOIDOSCOPY Screening every 5 yrs 2006 Colorectal Cancer: Fecal Imm unochemical Test (FIT) Annually [facility] 2006 Colorectal Cancer: High-sens itivity gFOBT Screening Annually [facility] 2006 Colorectal Cancer: Stool Col oguard Screening every 3 yrs 2006 Colorectal Cancer:CT Colonography Screening every 5 yr s 2006 Pneumococcal Vaccination Scr eening: Patients 50+ yrs of age ([facility]) (1 of 1 - PCV) 2011 Zoster/Shingles Vaccine Seri es Screening: Adults aged 18+ yrs (or HM Modifiers)([facility]) (1 of 2) 2011 COVID-19 Vaccine Screening: Initial Series and Booster Status ([facility]) (2023- season) 2024 Flu Vaccination: Yearly for ages 18mos through 64 years (or Modifier)([facility]) 02/18/2025 RSV Vaccines (1 - 1-dose 75+ series) 2036 Medical Devices Not on file Care Teams Motor Checker Relationship Specialty Start Date End Date No, Pcp, MAINTENANCE AND UTILITIES SUPERVISOR N/A Do not use PCP - General Family Medicine 04/25/20
[2025-03-04 10:26] LABS: Hematocrit 46.9 % (42.0-52.0); Hemoglobin 15.4 g/dl (14.0-18.0); Mean Corpuscular HGB Conc 32.8 g/dl (31.0-36.0); Mean Corpuscular Hemoglobin 29.8 pg (27.0-33.0); Mean Corpuscular Volume 90.7 fL (80.0-98.0); NRBC Abs Auto 0.000 X10*3/uL (0.0-0.012); NRBC Pct Auto 0.0 /100WBC (0.0-0.2); Platelet Count 188 X10*3/uL (160-400); Red Blood Count 5.17 X10*6/uL (4.60-5.80); White Blood Count 4.3 X10*3/uL (4.8-10.8)
[2025-03-04 10:52] LABS: Alanine Aminotransferase 39 U/L (0-40); Albumin Level 4.4 g/dL (3.5-5.0); Alkaline Phosphatase 80 U/L (39-117); Anion Gap 14 (12-20); Aspartate Amino Transferase 34 U/L (5-37); Blood Urea Nitrogen 20 mg/dL (9-16); Calcium 9.3 mg/dL (8.4-10.2); Carbon Dioxide 28 mmol/L (22-29); Chloride 105 mmol/L (96-108); Cholesterol 172 mg/dL (<200); Estimated Glomerular Filt Rate > 60; HDL Cholesterol 70 mg/dL (>40); Potassium 4.6 mmol/L (3.3-5.1); Sodium 142 mmol/L (135-145); Total Protein 6.8 g/dL (6.5-8.0); Triglycerides 74 mg/dL (<150)
== END 2025-03-04 06:43 | disposition home or self-care (01) ==
LOC: HO.HMGCLDS 06:42
PROVIDERS: PCP Physician Assistant; Visit Provider Physician Assistant
DX: Z12.5 Encounter for screening for malignant neoplasm of prostate (principal); E78.2 Mixed hyperlipidemia
CPT/HCPCS: 36415; 80053; 80061; 84153; 85027

== ENCOUNTER 2025-03-08 15:45 | Outpatient (AMB) | payer OTHER, SELFPAY ==
[2025-03-08 16:11] VITALS: BP 110/70; PULSE 75; TEMP 36.3; O2SAT 95; BMI 23.0
--- NOTE | 2025-03-08 16:11 | A.OFFPC_ITS ---
Vital Signs 03/08/25 16:11 Height 5 ft 8 in Weight 151 lb 4 oz BMI 23.0 BP 110/70 Blood Pressure Location Lt brachial Position Sitting Pulse 75 Pulse Source Pulse Oximeter Temp 97.3 F Temp Source Temporal Artery Scan Pulse Oximetry (%) 95 Oxygen Delivery Method Room Air Intake Visit Reasons: PE R/S from 02/23 Intake Note: Patient is here today for a physical. Ballet Master/Mistress Required: No Social Work Lecturer: Not Required per policy Accompanied by: Self / Same As Patient Allergies No Known Allergies (No Known Allergies*) Allergy (Verified 03/08/25 16:18) Medication List - Last Reconciled 03/08/25 by Ace Barriga PA-C atorvastatin 20 mg PO DAILY 90 days Tobacco use date assessed: 03/08/25 Dental Screening Dental Screen Date: 10/26/24 HPI PE R/S from 02/23 HPI Details Patient is 64-year-old male here today for routine annual physical. Patient has a past medical history significant for hyperlipidemia,, head and neck tremor, Elevated PSA: Patient's most recent PSA noted to be elevated at 4.8. He does admit to family history of benign prostatic hypertrophy Tremor: Also remains with a head and neck tremor. He does report having somewhat of a tremor is upper extremities that causes his sometimes difficulties with writing. Does report family history of parkinsonian syndrome. He has upcoming appointment with Neurology and will discuss perhaps starting medication as he has had difficulty with hand writing due to his tremor. .. Right foot bunion: He continues to have right foot pain associated in the base of the right toe. He is awaiting to be scheduled with Podiatry for a bunionectomy in the winter. . Hyperlipidemia: Has restarted using statin therapy(atorvastatin 20 mg). Most recent lipid panel showing good control of his total cholesterol and LDL .. Colorectal cancer screening- colonoscopy done in spring, tubular adenoma Polyp found, repeat in 5 years vaccines: Up-to-date with tetanus and COVID vaccine, considering shingles vaccine Laboratory Tests 04/12/24 03/04/25 07:15 07:01 RBC 5.17 Creatinine 0.93 Cholesterol 172 PSA Screen 2.99 4.82 H [facility] Medical History Atherosclerotic cardiovascular disease Surgical History H/O colonoscopy History of rotator cuff surgery Family History (Updated 03/08/25 @ 16:32 by Ace Barriga PA-C) Mother Heart disease Lung cancer Breast cancer Father Heart disease CAD (coronary artery disease) Parkinson disease Hypertension Hypercholesteremia Hemochromatosis Sudden cardiac arrest Myocardial infarction Benign prostatic hyperplasia CKD (chronic kidney disease) Sister Breast cancer Social History (Updated 03/08/25 @ 16:24 by Ace Barriga PA-C) Household Members Other:: single- 2 adult kids Housing: House Alcohol intake: current Alcohol intake frequency: a few times a month Alcohol type: beer Patient Tobacco Use Status: Never used Tobacco e-Cigarette/Vaping Use: Never Used Second Hand Smoke Exposure: No service: No Current occupational status: employed 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 1. Little interest or pleasure in doing things: not at all 2. Feeling down, depressed, or hopeless: not at all 3. Trouble falling or staying asleep, or sleeping too much: not at all 4. Feeling tired or having little energy: not at all 5. Poor appetite or overeating: not at all 6. Feeling bad about yourself - or that you are a failure or have let yourself or your family down: not at all 7. Trouble concentrating on things, such as reading the newspaper or watching television: not at all 8. Moving or speaking so slowly that other people could have noticed. Or the opposite - being so fidgety or restless that you have been moving around a lot more than usual: not at all 9. Thoughts that you would be better off or of hurting yourself in some way: not at all Total score: 0 Depression Screening Interpretation: Negative Depression Screening Done: Yes 84261 - PHQ-9 Billing: Yes Source: Developed by Drs. Álvaro Gonzalez, Jeanine Schmidt, Yohan Jolly and colleagues, with an educational matthieu from [employer]. Thrive Questionnaire Date Thrive assessed: 03/01/25 I am a: Patient What is your living situation today?: I have a steady place to live Within the past 12 months, did the food you bought not last and you didn't have the money to get more?: Never true Within the past 12 months, did you worry whether your food would run out before you got money to buy more?: Never true Do you have trouble paying for medicines?: No Do you have trouble getting transportation to medical appointments?: No Do you have trouble paying your heating and electricity bill?: No Do you have trouble taking care of your child, family member or friend?: No Do you have trouble with day-to-day activities such as bathing, preparing meals, shopping, managing finances, etc.?: No Are you currently unemployed and looking for a job?: No Are you interested in more education?: No Please select the resources that you would like help with: None Currently or been in a relationship where the following occur: No concerns re ported THRIVE Score: 0 AUDIT C Alcohol Use Questionnaire (AUDIT-C) 1. How often do you have a drink containing alcohol?: 2-3 times a week Total Score: 3 KISHA-7 AMB Questionnaire KISHA-7 Date KISHA - 7 assessed: 03/08/25 Feeling nervous, anxious, or on edge: 0 = Not at all Not being able to stop or control worryin = Not at all Worrying too much about different things: 0 = Not at all Trouble relaxin = Not at all Being so restless that it is hard to sit still: 0 = Not at all Becoming easily annoyed or irritable: 0 = Not at all Feeling afraid as if something awful might happen: 0 = Not at all Total KISHA-7 score (0-4 normal; 5-9 mild; 10-14 moderate; 15-21 severe): 0 Source: Developed by Drs. Álvaro Gonzalez, Jeanine Schmidt, Yohan Jolly and colleagues, with an educational matthieu from [employer]. KISHA-7 Assessment Billing KISHA-7 Assessment Tool: KISHA-7 Assessment 49825 Review of Systems Const Denies body aches, Denies chills, Denies excessive sweating, Denies fatigue, Denies fever(s) and Denies headache(s) Eyes Denies blurry vision ENT Denies dysphagia, Denies vertigo, Denies dizziness, Denies headache(s), Denies hearing loss and Denies tinnitus Card Denies chest pain, Denies chest pain with activity, Denies syncope, Denies irregular heart rhythm and Denies dyspnea Resp Denies chest congestion, Denies cough, Denies hemoptysis, Denies dyspnea and Denies wheezing GI Denies abdominal pain, Denies melena, Denies hematochezia, Denies coffee ground emesis, Denies dysphagia, Denies diarrhea, Denies nausea and Denies vomiting Denies difficulty urinating, Denies dysuria, Denies urinary frequency, Denies urinary hesitancy and Denies urinary urgency Musc Denies arthralgias, Denies limited range of motion, Denies muscle cramps and Denies muscle weakness Skin/Breast Denies rash and Denies skin ulcer Neuro Denies Abnormal speech present, Denies confusion, Denies vertigo, Denies dizziness, Denies syncope, Denies headache(s), Denies memory loss and Denies seizure-like activity Psych Denies anxiety, Denies confusion, Denies depression, Denies memory loss, Denies panic attacks and Denies paranoia Endo Denies excessive sweating, Denies fatigue, Denies flushing, Denies polydipsia and Denies polyuria Aller/Immun Denies wheezing Physical exam (Primary Care) Vital Signs: Last Vital Signs Temp 97.3 F 03/08/25 16:11 Pulse 75 03/08/25 16:11 BP 110/70 03/08/25 16:11 Pulse Ox 95 03/08/25 16:11 Oxygen Delivery Method Room Air 03/08/25 16:11 BMI result Body Mass Index 23.0 Tobacco/Smoking Status: Tobacco use Status Tobacco use date assessed 03/08/25 03/08/25 16:14 Patient Tobacco Use Status Never used Tobacco 03/08/25 16:24 e-Cigarette/Vaping Use Never Used 03/08/25 16:24 PHQ-9: PHQ-9 Score PHQ-9: Total score 0 03/08/25 16:25 Depression Screening Interpretation: Negative Thrive Assessment: Date of Thrive Assessment Date Thrive assessed 03/01/25 03/08/25 16:14 Currently or been in a relationship where the following occur: No concerns reported Const General: cooperative, comfortable, no acute distress, alert and awake; No confusion Orientation/consciousness: oriented to person, oriented to place, patient oriented x3 and No confusion HENMT Head: Yes normocephalic Ears: external ears normal and TM's normal bilaterally Face and sinus: No sinus tenderness Mouth: Normal oral and palatal mucosa present and tongue normal Teeth and gingiva: dentition normal and gingiva normal Throat: Yes posterior oropharynx normal, Yes tonsils normal and Yes uvula midline Eyes Conjunctivae: conjunctivae normal Sclerae: sclerae normal Pupils: Equal, round and reactive pupils present EOM: EOMs intact bilaterally Direct Ophthalmoscopy: No no photophobia Neck Neck: Yes no lymphadenopathy, No tender and Yes no JVD Thyroid: Thyroid normal Carotids: no bruits Chest Chest palpation & inspection: no tenderness Resp Effort & Inspection: normal respiratory effort, no audible wheezes, not labored and no stridor Auscultation: no crackles, no rales, no rhonchi and no wheezes Cardio Jugular venous distension: no JVD Rate: regular rate, not bradycardic and not tachycardic Rhythm: regular rhythm Bruits: no carotid bruits Peripheral pulses: Peripheral pulses 2+ throughout GI Inspection: Yes normal to inspection, No abdominal wall ecchymosis and No visible herniation Palpation (GI): Soft to palpation, nontender, no guarding, not rigid and No hepatosplenomegaly present Auscultation: normoactive bowel sounds General: Yes no CVA tenderness Back/Spine/Pelvis Back: no CVA tenderness and No back tenderness Cervical Spine: cervical ROM normal Thoracic/Lumbar Spine: thoracic and lumbar spine normal to inspection, straight leg raise negative bilaterally, No thoraco-lumbar ROM limited and No lumbar spinal tenderness Skin Lesions: no lesions Rashes: no rashes Wounds: no wounds Neuro General: oriented to person, oriented to place, patient oriented x3, CN's II-XI intact bilaterally and No confusion Cranial nerves: Yes Equal, round and reactive pupils present and Yes Normal accommodation reflex present Cognition (Neuro): normal cognition Speech: No Abnormal speech present Gait exam (Neuro): Normal gait present Motor exam (neuro): 5/5 motor strength present throughout Extrem Right upper extremity: full ROM; no cyanosis Left upper extremity: full ROM; no cyanosis Right lower extremity: no edema Left lower extremity: no edema Psych Appearance: grossly normal Mental Status: mental status grossly normal Affect: normal affect Attitude: cooperative Thought process: Normal thought process present Coding Level of Care Code Est Pt Prev Care 40-64y(88471) Diagnoses Annual physical exam Z00.00 Mixed hyperlipidemia E78.2 Hyperlipidemia type: mixed hyperlipidemia Tremor R25.1 Bunion, right M21.611 Elevated PSA R97.20 Additional Codes KISHA-7 Assessment Billing - KISHA-7 Assessment Tool: KISHA-7 Assessment 87258 ([id number]) PHQ-9 - 65351 - PHQ-9 Billing: Yes ([id number]) Assessment & Plan Assessment & Plan (1) Annual physical exam: Code(s): Z00.00 - Encounter for general adult medical examination without abnormal findings Category: Medical Plan: as per HPi (2) HLD (hyperlipidemia): Code(s): E78.5 - Hyperlipidemia, unspecified Category: Medical Qualifiers: Hyperlipidemia type: mixed hyperlipidemia Qualified Code(s): E78.2 - Mixed hyperlipidemia Plan: Patient's most recent lipid panel showing excellent control of his total cholesterol and LDL. He will continue on current dose of atorvastatin with goal LDL to remain below 130 (3) Tremor: Comment: LUE wingbeat tremor. Head tremor. BUE action tremor- raul on writing/drawing. Gait w/ decreased left arm swing. Code(s): R25.1 - Tremor, unspecified Category: Medical Plan: Will be following up in Neurology about his tremor. He is somewhat interested in starting medication to help him settle his tremor. (4) Bunion, right: Code(s): M21.611 - Bunion of right foot Category: Medical Plan: Patient is awaiting to be scheduled for surgical fix of his right foot bunion. He continues to wear white foot shoes which are the only comfortable shoes he can wear without pain. (5) Elevated PSA: Code(s): R97.20 - Elevated prostate specific antigen [PSA] Category: Medical Plan: Noted elevated PSA most recent labs. He does have family history of BPH. He does report a weaker urinary stream over the last few years.. He is willing to recheck his PSA in 4-6 months and if remains elevated will consider Urology evaluation and medication. Orders: Orders Lipid Panel 03/08/25 E78.2 - Mixed hyperlipidemia Complete Blood Count no Diff 03/08/25 E78.2 - Mixed hyperlipidemia Comprehensive [place]. Panel Fast 03/08/25 E78.2 - Mixed hyperlipidemia Prostate Specific Antigen Scr 03/08/25 R97.20 - Elevated prostate specific antigen [PSA], Z12.5 - Encounter for screening for malignant neoplasm of prostate
--- OUTSIDE RECORDS SUMMARY | 2025-03-08 17:07 | XMS_ITS | Clinical Summary ---
Author Organization [facility] Address [address] [place] [address] Phone Care Team Providers Care Microsoft Systems Engineer Name Role Phone Maki Sen MD Primary Care Provider [phone] Allergies No known active allergies Medications atorvastatin [...] patient's age to complete this topic Insurance [facility] Care Teams Microsoft Systems Engineer Relationship Specialty Start Date End Date Maki Sen MD [address] [place] [address] [address] [facility] [place] [address] PCP - General 02/25/24
--- OUTSIDE RECORDS SUMMARY | 2025-03-08 17:07 | XMS_ITS | Clinical Summary ---
Author Organization [facility] [employer] [facility] Address [address] [place] [address] Care Team Providers Care Paving Stone Installer Name Role Phone No, Pcp ASSISTANT CORPORATE SECRETARY Primary Care Provider Unavailabl e Social History [...] yrs or above (or HM Modifier)([facility]) 1979 Hepatitis C Virus Infection in Adolescents and Adults: Screening (or Modifier) ([facility]) 1979 SDSC Screening Reminder: Denise foss for all adults ([facility]) 1979 Tobacco Smoking Cessation: i n Adults excluding Women: Behavioral and Pharmacotherapy Interventions ([facility]) 1979 DTaP/Tdap/Td Vaccines ([facility]) (1 - Tdap) 1980 Colorectal Cancer Screening 45 -75 Yrs (or HM Modifier ) 2006 Colorectal Cancer: FLEXIBLE SIGMOIDOSCOPY Screening every 5 yrs 2006 Colorectal Cancer: Fecal Imm unochemical Test (FIT) Annually [facility] 2006 Colorectal Cancer: High-sens itivity gFOBT Screening Annually [facility] 2006 Colorectal Cancer: Stool Col oguard Screening every 3 yrs 2006 Colorectal Cancer:CT Colonography Screening every 5 yr s 2006 Pneumococcal Vaccination Scr eening: Patients 50+ yrs of age ([facility]) (1 of 1 - PCV) 2011 Zoster/Shingles Vaccine Seri es Screening: Adults aged 18+ yrs (or HM Modifiers)([facility]) (1 of 2) 2011 COVID-19 Vaccine Screening: Initial Series and Booster Status ([facility]) (2023- season) 2024 Flu Vaccination: Yearly for ages 18mos through 64 years (or Modifier)([facility]) 02/18/2025 RSV Vaccines (1 - 1-dose 75+ series) 2036 Medical Devices Not on file Care Teams Paving Stone Installer Relationship Specialty Start Date End Date No, Pcp, ASSISTANT CORPORATE SECRETARY N/A Do not use PCP - General Family Medicine 04/25/20
== END 2025-03-08 16:40 | disposition home or self-care (01) ==
LOC: HO.HMCH 15:45
PROVIDERS: PCP Physician Assistant; Visit Provider Physician Assistant
DX: Z00.00 Encounter for general adult medical examination without abnormal findings (principal); E78.2 Mixed hyperlipidemia; R25.1 Tremor, unspecified; M21.611 Bunion of right foot; R97.20 Elevated prostate specific antigen [PSA]

== ENCOUNTER → 2025-03-08 15:45 | Outpatient (BNVA) | payer OTHER, SELFPAY | PROVIDERS: PCP Physician Assistant; Visit Provider Physician Assistant | DX: Z00.00 Encounter for general adult medical examination without abnormal findings (principal); R97.20 Elevated prostate specific antigen [PSA]; R25.1 Tremor, unspecified; M21.611 Bunion of right foot; E78.2 Mixed hyperlipidemia | CPT/HCPCS: 96127; 99396 ==

== ENCOUNTER 2025-03-15 08:56 | Outpatient (AMB) | payer OTHER, SELFPAY ==
--- NOTE | 2025-03-15 09:01 | A.OFFVIS_ITS ---
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 Pt was last seen in Aug 2023. Pt denies any significant interval medical history changes. Other than his recent PSA had increased. And then the other day, he noticed some mild hematuria and blood staining on his underwear. He also reports nocturia 2-3 x's per night in the last 6-8 months. He denies dysuria. He palns to reach out to his PCP. He deneis any interval dizziness or lightheadedness- since he has been better about making sure he is eating and drinking enough fluids. His head tremor is stable. He notices a bit more tremor with rest or activity, such as writing, or using a screwdriver/screw. Somedays he has no tremor, and other days it is more botehrsome. Maybe more when doing activities overhead, such as putting a screw or nail above his head. He tries to manage by taking a break, which is helpful. He is not interested in trying medications or PT/OT at this time. 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 Pt denies: hyposmia, droooling, dysphagia, usual lightheadedness (other than the the syncopal episodes), constipation, parasomnias, memory changes, stiffness, gait changes, falls, neck pain/tightness, headaches. [facility] Medical History Atherosclerotic cardiovascular disease Surgical History H/O colonoscopy History of rotator cuff surgery Family History Mother Heart disease Lung cancer Breast cancer Father Heart disease CAD (coronary artery disease) Parkinson disease Hypertension Hypercholesteremia Hemochromatosis Sudden cardiac arrest Myocardial infarction Benign prostatic hyperplasia CKD (chronic kidney disease) Sister Breast cancer Social History Household Members Other:: single- 2 adult kids Housing: House Alcohol intake: current Alcohol intake frequency: a few times a month Alcohol type: beer Patient Tobacco Use Status: Never used Tobacco e-Cigarette/Vaping Use: Never Used Second Hand Smoke Exposure: No service: No Current occupational status: employed 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 No cervical tightness noted. Mild LUE tremor postural tremor. Mild BUE elbow tone. FFM- slightly decreased on left. Foot taps- intact Stands easily- slight decrease in left arm swing, good stride, steady gait Psych Appearance: grossly normal Mental Status: mental status grossly normal Speech and movement: Clear speech present Affect: normal affect Attitude: cooperative Results Reviewed Results Reviewed: 03/26/23, [facility], Tilt Table Test: INDICATION: ?Syncope ? OPERATORS: ?Lesli Darnell NP, Omar Menchaca RN & Tati Hamm ? DESCRIPTION OF PROCEDURE: ?The pt presented to the cardiac stress lab in a fasting state. ?Identity of the pt was confirmed. ?The procedure was explained to the pt. ?The pt states he feels well this AM. ? PREPROCEDURAL VITAL SIGNS IN THE SUPINE POSITION: ?B/P: ?147/91 mmHg ? ? HR: ?60 bpm B/P in the sitting position: ?138/76 mmHg ?HR: ?74 bpm ? PROCEDURAL VITAL SIGNS AT 70 DEGREE TILT 2 min: ?B/P: ?137/93 ?mmHg ?HR: ?63 bpm 4 min: ? 137/92 ? 71 6 min: ? 134/87 ? 68 8 min: ? 138/93 ? 68 10 min: ? 128/90 ? 75 12 min: ? 133/93 ? 70 14 min: ? 139/87 ? 73 16 min: ? 126/99 ? 76 ? c/o right hand tingling 18 min: ? 143/95 ? 70 20 min: ? 149/101 ? 69 22 min: ? 124/92 ? 72 24 min: ? 128/94 ? 73 26 min: ? 143/94 ? 70 28 min: ? 126/95 ? 73 30 min: ? 134/94 ? 73 TEST ENDED PT RETURNED TO SUPINE POSITION ? POST PROCEDURAL VITAL SIGNS 0913: Supine: ?B/P: ?158/102 mmHg ?HR: ?61 bpm ?Pt states he feels well. ? Sitting: ?162/101 ? 68 ? IMRESSION: ?NORMAL. ?However, pt was hypertensive throughout the test. ? Assessment & Plan Assessment & Plan (1) Tremor: Comment: LUE wingbeat tremor. Head tremor. BUE action tremor- raul on writing/drawing. Gait w/ decreased left arm swing. Code(s): R25.1 - Tremor, unspecified Category: Medical (2) Syncope and collapse: Code(s): R55 - Syncope and collapse Category: Medical Plan For syncope: Brain MRI and EEG- unremarkable. Tilt-table- no evidence of orthostatic hypotension. Continue to take increased quantity, frequency, and quality of his meals and fluid intake. Encouraged to add higher protein snacks and continue electrolyte drinks. For tremor and ? of PD: Pt has very mild asymmetric L > R tremor and decreased LUE arm swing w/ walking and episodes of syncope, which could be very early signs of a PD process, however he denies many other early s/s of PD/movement disorders. Recent brain MRI- unremarkable. Tilt-table- normal. Will monitor clinically for now. Continue regular physical activity. Future considerations: DaTscan. ? f/u in 6 months or sooner prn. Coding Level of Care Code Est Pt Level 3 (40250) Diagnoses Tremor R25.1 Syncope and collapse R55
[2025-03-15 09:02] VITALS: BP 138/80; PULSE 66; O2SAT 98; BMI 23.5
--- OUTSIDE RECORDS SUMMARY | 2025-03-15 09:15 | XMS_ITS | Clinical Summary ---
Author Organization [facility] Address [address] [place] [address] Phone Care Team Providers Care Financial Wellness Coach Name Role Phone Maki Sen MD Primary Care Provider [phone] Allergies No known active allergies Medications atorvastatin [...] patient's age to complete this topic Insurance [facility] Care Teams Financial Wellness Coach Relationship Specialty Start Date End Date Maki Sen MD [address] [place] [address] [address] [facility] [place] [address] PCP - General 02/25/24
--- OUTSIDE RECORDS SUMMARY | 2025-03-15 09:15 | XMS_ITS | Clinical Summary ---
Author Organization [facility] [employer] Address [address] [place] [address] Care Team Providers Care Transit Mixer Operator Name Role Phone No, Pcp TELEVISION RECEIVER ANALYZER Primary Care Provider Unavailabl e Social History [...] Adults 18 yrs or above (or HM Modifier)([facility]) 1979 Hepatitis C Virus Infection in Adolescents and Adults: Screening (or Modifier) ([facility]) 1979 SDMD Screening Reminder: Denise foss for all adults ([facility]) 1979 Tobacco Smoking Cessation: i n Adults excluding Women: Behavioral and Pharmacotherapy Interventions ([facility]) 1979 DTaP/Tdap/Td Vaccines ([facility]) (1 - Tdap) 1980 Colorectal Cancer Screening 45 -75 Yrs (or HM Modifier ) 2006 Colorectal Cancer: FLEXIBLE SIGMOIDOSCOPY Screening every 5 yrs 2006 Colorectal Cancer: Fecal Imm unochemical Test (FIT) Annually [facility] 2006 Colorectal Cancer: High-sens itivity gFOBT Screening Annually [facility] 2006 Colorectal Cancer: Stool Col oguard Screening every 3 yrs 2006 Colorectal Cancer:CT Colonography Screening every 5 yr s 2006 Pneumococcal Vaccination Scr eening: Patients 50+ yrs of age ([facility]) (1 of 1 - PCV) 2011 Zoster/Shingles Vaccine Seri es Screening: Adults aged 18+ yrs (or HM Modifiers)([facility]) (1 of 2) 2011 COVID-19 Vaccine Screening: Initial Series and Booster Status ([facility]) (2023- season) 2024 Flu Vaccination: Yearly for ages 18mos through 64 years (or Modifier)([facility]) 02/18/2025 RSV Vaccines (1 - 1-dose 75+ series) 2036 [employer] Not on file Care Teams Transit Mixer Operator Relationship Specialty Start Date End Date No, Pcp, TELEVISION RECEIVER ANALYZER N/A Do not use PCP - General Family Medicine 04/25/20
== END 2025-03-15 10:06 | disposition home or self-care (01) ==
LOC: HO.HSMS 08:56
PROVIDERS: PCP Physician Assistant; Visit Provider Nurse Practitioner Family
DX: R25.1 Tremor, unspecified (principal); R55 Syncope and collapse
CPT/HCPCS: 99213

== ENCOUNTER → 2025-03-15 08:56 | Outpatient (BNVA) | payer OTHER, SELFPAY | PROVIDERS: PCP Physician Assistant; Visit Provider Nurse Practitioner Family | DX: R55 Syncope and collapse (principal); R25.1 Tremor, unspecified | CPT/HCPCS: 99212 ==